=== PATIENT | male | born 1975 | race Caucasian/White ===

== ENCOUNTER 2016-08-09 20:44 | Emergency (ER) | payer BC ==
[~2016-08-09] VITALS: Ht 185.4 cm; Wt 133.1 kg
[~2016-08-09 20:44] MED LIST: OXYC1TAB3 PO; POTA10CA28 PO
[2016-08-09 20:47] VITALS: Ht 185.4 cm; Wt 133.1 kg
[2016-08-09 21:07] VITALS: O2SAT 96
[2016-08-09 21:19] LABS: HEMATOCRIT 40.8 % (42-52); MEAN CELL VOLUME 90.1 fL (80-100); MEAN CORPUSCULAR HEMOGLOBIN 30.2 pg (25-34); MEAN CORPUSCULAR HGB CONC 33.6 g/dl (32-36); MEAN PLATELET VOLUME 9.6 fL (7.4-10.4); PLATELET COUNT 221 K/uL (130-400); RED BLOOD COUNT 4.53 M/uL (4.7-6.1)
[2016-08-09 21:25] LABS: PROTHROMBIN TIME (PATIENT) 10.4 SECONDS (9.0-12.0)
[2016-08-09 21:33] LABS: ALB/GLOB RATIO 0.9 (0.9-2); ALKALINE PHOSPHATASE 84 U/L (45-117); ALT/SGPT 50 U/L (12-78); AST/SGOT 23 U/L (15-37); BLOOD UREA NITROGEN 11 mg/dl (7-18); CALCIUM 8.9 mg/dl (8.5-10.1); CARBON DIOXIDE 27 mmol/L (21-32); CHLORIDE 104 mmol/L (98-107); GLUCOSE 181 mg/dl (70-99); POTASSIUM 3.9 mmol/L (3.5-5.1); SODIUM 141 mmol/L (136-145)
--- NOTE | 2016-08-09 21:36 | DIAGNOSTIC IMAGING REPORT ---
CHEST ONE VIEW PORTABLE CLINICAL HISTORY: Chest pain. Dyspnea. COMPARISON STUDY: Chest radiograph and chest CT December 26, 2014. FINDINGS: This exam is compromised by suboptimal penetration related to body habitus and portable technique. Lung volumes are diminished. This is unchanged. No pneumothorax or pleural effusion is present. Mild to moderate cardiomegaly is noted. There is pulmonary vascular congestion with possible mild pulmonary edema. There is no consolidation to suggest pneumonia. IMPRESSION: 1. Diminished lung volumes. 2. Pulmonary vascular congestion with possible mild pulmonary edema. 3. Suspected cardiomegaly. Electronically signed by: Ranjit Wyman M.D. 08/09/2016 9:34 PM Dictated Date/Time: 08/09/2016 9:32 PM
[2016-08-09] MEDS ORDERED: KETOROLAC TROMETHAMINE 30 MG/ML VIAL IV STA (21:44)
[2016-08-09] MEDS ORDERED: TRAMADOL HCL 50 MG TAB PO STA (21:44)
[2016-08-09] MEDS ORDERED: ACETAMINOPHEN 500 MG TAB PO STA (21:44)
--- NOTE | 2016-08-09 21:44 | EMERGENCY ROOM VISIT NOTE ---
History Report prepared by Cora: Rosa Mclaughlin Under the Supervision of: Dr. Renny Ortiz M.D. First contact with patient: 21:36 Chief Complaint: CHEST PAIN Stated Complaint: CHEST PAIN, TROUBLE BREATHING,BLEEDING OUT LEFT EA Nursing Triage Summary: Triage Notes: Patient reports chest pain, difficulty breathing, and blood coming out of left ear. Patient reports symptoms began this morning. Denies cardiac history. History of Present Illness The patient is a 41 year old male who presents to the Emergency Room with complaints of constant chest pain beginning at 9am this morning. The patient states that the chest pain is causing him to have difficulty breathing. He also notes that this afternoon his ear began to bleed. The patient also notes the tips of his fingers are numb. Patient has history of PE and is not currently on blood thinners. Source of History: patient Onset: 9am this morning Position: chest Timing: constant Modifying Factors (Worsening): breathing Associated Symptoms: + numbness Note: The patient's ear was bleeding this morning. He is not on blood thinners. Review of Systems See HPI for pertinent positives & negatives. A total of 10 systems reviewed and were otherwise negative. Past Medical & Surgical Medical Problems: (1) Abdominal pain (2) ACS (acute coronary syndrome) (3) Asthma, Unspecified, W (Acute) Exacerbation (4) Asthmatic bronchitis (5) Atypical chest pain (6) Back pain (7) Blast injury of hand (8) Chest pain (9) Chest pain (10) Chest pain (11) Chest pain (12) Concussion (13) Contusion of multiple sites (14) Contusion of right shoulder (15) Costochondritis (16) Depression (17) Diabetes (18) Dizziness (19) Dyspnea (20) Gout Nos (21) Headache (22) Headache (23) HTN (hypertension) (24) Hx of pulmonary embolus (25) Hypoglycemia (26) Leukocytosis (27) Morbid Obesity (28) Nausea (29) Nephrolithiasis (30) Phlebitis (31) Pneumonia (32) Poorly controlled diabetes mellitus (33) Renal colic on left side (34) Right shoulder pain (35) Subtherapeutic anticoagulation (36) Suicidal ideation (37) Syncope (38) Weakness Surgical Problems: (1) Appendectomy (2) Tonsillectomy Family History Asthma Cancer Diabetes mellitus Heart disease Hypertension Kidney disease Kidney stones Lung disease Social History Smoking Status: Never Smoker Alcohol Use: occasionally Drug Use: none Marital Status: Housing Status: lives with family Occupation Status: employed Current/Historical Medications Scheduled Metformin Hcl (Glucophage), 1,000 MG PO BID Potassium Chloride (Micro-K Ext Rel), 10 MEQ PO QPM Sertraline HCl (Sertraline HCl), 200 MG PO QPM Scheduled PRN Indomethacin (Indocin), 50 MG PO TID PRN for Pain Allergies Coded Allergies: No Known Allergies (Unverified , 10/29/15) Physical Exam Vital Signs Date Time Temp Pulse Resp B/P Pulse Ox O2 Delivery O2 Flow Rate FiO2 08/10/16 00:00 36.4 66 20 138/77 95 08/09/16 23:58 66 20 138/77 95 Room Air 08/09/16 23:04 58 20 95 08/09/16 22:59 77 22 138/77 94 08/09/16 22:54 57 21 94 08/09/16 22:49 74 13 94 08/09/16 22:44 73 13 95 08/09/16 22:39 64 16 96 08/09/16 22:34 63 23 96 08/09/16 22:29 62 17 132/73 95 08/09/16 22:24 62 21 95 08/09/16 21:54 73 17 94 08/09/16 21:49 71 19 95 08/09/16 21:44 73 18 94 08/09/16 21:39 70 17 94 08/09/16 21:34 69 20 95 08/09/16 21:29 76 15 135/79 93 08/09/16 21:24 79 21 94 08/09/16 21:19 77 19 93 08/09/16 21:14 85 13 97 08/09/16 21:09 79 18 95 08/09/16 21:07 36.4 65 21 144/73 96 Room Air 08/09/16 21:07 96 Room Air 08/09/16 21:04 79 19 96 08/09/16 21:02 96 Room Air 08/09/16 20:59 67 08/09/16 20:59 65 21 96 08/09/16 20:58 144/73 08/09/16 20:56 139/79 08/09/16 20:47 36.4 78 16 179/86 96 Room Air Physical Exam CONSTITUTIONAL: Mild painful distress. HEENT: No icterus, moist mucous membranes NECK: No meningismus, trachea is midline. CARDIOVASCULAR: Regular rate, normal perfusion RESPIRATORY: Unlabored breathing. Clear to auscultation. GASTROINTESTINAL: Non-tender GENITOURINARY: No flank tenderness MUSCULOSKELETAL: Full range of motion NEUROLOGIC: No acute gross focal deficits. PSYCHIATRIC: Normal affect SKIN: Normal for ethnicity. Medical Decision & Procedures ER Provider Diagnostic Interpretation: X-ray results as stated below per my interpretation and radiologist interpretation. Other radiology results as stated below per my review and radiologist interpretation. CHEST ONE VIEW PORTABLE CLINICAL HISTORY: Chest pain. Dyspnea. COMPARISON STUDY: Chest radiograph and chest CT December 26, 2014. FINDINGS: This exam is compromised by suboptimal penetration related to body habitus and portable technique. Lung volumes are diminished. This is unchanged. No pneumothorax or pleural effusion is present. Mild to moderate cardiomegaly is noted. There is pulmonary vascular congestion with possible mild pulmonary edema. There is no consolidation to suggest pneumonia. IMPRESSION: 1. Diminished lung volumes. 2. Pulmonary vascular congestion with possible mild pulmonary edema. 3. Suspected cardiomegaly. Electronically signed by: Ranjit Wyman M.D. 08/09/2016 9:34 PM Dictated Date/Time: 08/09/2016 9:32 PM CHEST CTA for PULMONARY ARTERIES CT DOSE: 663.68 mGy.cm HISTORY: Difficulty breathing. Atypical chest pain. TECHNIQUE: Multiaxial CT images of the chest were performed following the intravenous administration of contrast to evaluate the pulmonary arteries. Maximal intensity projection images were also obtained. COMPARISON STUDY: Chest CTA 12/26/2014. FINDINGS: There is a normal caliber thoracic aorta with no evidence for dissection. Suboptimal evaluation of of the distal pulmonary arteries due to mild motion artifact and the patient's body habitus. However, there is no definite evidence for pulmonary embolus. No pleural effusions. No pneumothorax. The liver and spleen are unremarkable. No mediastinal or hilar lymphadenopathy. The central airways are patent. There is a 3 mm pulmonary nodule within the lingula on image 45. No focal lung consolidations to suggest pneumonia. IMPRESSION: Suboptimal evaluation of of the distal pulmonary arteries, however, there is no definite evidence for pulmonary embolus. A 3 mm indeterminate pulmonary nodule within the lingula. Please refer to the chart below for recommended follow-up. Electronically signed by: You Stephen M.D. 08/09/2016 10:36 PM Dictated Date/Time: 08/09/2016 10:21 PM Laboratory Results 08/09/16 21:00 08/09/16 21:00 Test 08/09/16 21:00 08/09/16 21:05 Red Blood Count 4.53 M/uL (4.7-6.1) Mean Corpuscular Volume 90.1 fL (80-100) Mean Corpuscular Hemoglobin 30.2 pg (25-34) Mean Corpuscular Hemoglobin Concent 33.6 g/dl (32-36) RDW Standard Deviation 45.3 fL (36.4-46.3) RDW Coefficient of Variation 13.8 % (11.5-14.5) Mean Platelet Volume 9.6 fL (7.4-10.4) Prothrombin Time 10.4 SECONDS (9.0-12.0) Prothromb Time International Ratio 1.0 (0.9-1.1) Activated Partial Thromboplast Time 26.6 SECONDS (21.0-31.0) Partial Thromboplastin Ratio 1.0 Anion Gap 10.0 mmol/L (3-11) Est Creatinine Clear Calc Drug Dose 126.5 ml/min Estimated GFR () 96.1 Estimated GFR (Non- 82.9 BUN/Creatinine Ratio 10.0 (10-20) Calcium Level 8.9 mg/dl (8.5-10.1) Total Bilirubin 0.2 mg/dl (0.2-1) Aspartate Amino Transf (AST/SGOT) 23 U/L (15-37) Alanine Aminotransferase (ALT/SGPT) 50 U/L (12-78) Alkaline Phosphatase 84 U/L (45-117) Total Creatine Kinase 107 U/L (39-308) Creatine Kinase MB < 0.5 ng/ml (0.5-3.6) Creatine Kinase MB Ratio (0-3.0) Total Protein 7.6 gm/dl (6.4-8.2) Albumin 3.6 gm/dl (3.4-5.0) Globulin 4.0 gm/dl (2.5-4.0) Albumin/Globulin Ratio 0.9 (0.9-2) Chemistry Specimen Hemolysis Bedside Troponin I 0.000 ng/ml (0-0.045) Labs reviewed by ED physician. Medications Administered Medications (Trade) Dose Ordered Sig/Crystal Route Start Time Stop Time Status Last Admin Dose Admin Acetaminophen (Tylenol Tab) 1,000 mg NOW STAT PO 08/09/16 21:44 08/09/16 21:46 DC 08/09/16 21:55 1,000 MG Ketorolac Tromethamine (Toradol Inj) 30 mg NOW STAT IV 08/09/16 21:44 08/09/16 21:46 DC 08/09/16 21:55 30 MG Tramadol HCl (Ultram Tab) 100 mg NOW STAT PO 08/09/16 21:44 08/09/16 21:46 DC 08/09/16 21:54 100 MG ECG Indication: chest pain Rate (beats per minute): 70 Rhythm: normal sinus Findings: no ectopy, other (normal axis, nonspecific ST findings) ED Course 2139: Past medical records reviewed. The patient was evaluated in room A2. A complete history and physical examination was performed. 2143: Ulram Tab 100 mg PO, Toradol Inj 30 mg IV, Tylenol Tab 1,000 mg PO. 2310: Upon reexamination the patient is hemodynamically stable. I discussed results and treatment plan with the patient. He verbalizes agreement and understanding. The patient is ready for discharge. Medical Decision Differential diagnoses include but are not limited to; musculoskeletal pain, PE , acute coronary syndrome. 41-year-old presented to the emergency department for moderate to severe pleuritic chest pain essentially had a negative CTA chest, EKG and troponin. He requested stronger analgesics and I advised him to take Tylenol and Motrin every 6 hours as needed for pain. He understands to follow-up with her doctor return emergency room for any worsening worrisome symptoms Impression Primary Impression: Precordial chest pain Scribe Attestation The scribe's documentation has been prepared under my direction and personally reviewed by me in its entirety. I confirm that the note above accurately reflects all work, treatment, procedures, and medical decision making performed by me. Departure Information Dispostion Home / Self-Care Referrals Yin Magallon C.R.N.P (PCP) Forms HOME CARE DOCUMENTATION FORM, IMPORTANT VISIT INFORMATION Patient Instructions Chest Pain - [facility], My [facility]
[2016-08-09] MEDS ORDERED: OPTIRAY 320 IV PRN (22:00)
--- NOTE | 2016-08-09 22:37 | DIAGNOSTIC IMAGING REPORT ---
CHEST CTA for PULMONARY ARTERIES CT DOSE: 663.68 mGy.cm HISTORY: Difficulty breathing. Atypical chest pain. TECHNIQUE: Multiaxial CT images of the chest were performed following the intravenous administration of contrast to evaluate the pulmonary arteries. Maximal intensity projection images were also obtained. COMPARISON STUDY: Chest CTA 12/26/2014. FINDINGS: There is a normal caliber thoracic aorta with no evidence for dissection. Suboptimal evaluation of of the distal pulmonary arteries due to mild motion artifact and the patient's body habitus. However, there is no definite evidence for pulmonary embolus. No pleural effusions. No pneumothorax. The liver and spleen are unremarkable. No mediastinal or hilar lymphadenopathy. The central airways are patent. There is a 3 mm pulmonary nodule within the lingula on image 45. No focal lung consolidations to suggest pneumonia. IMPRESSION: Suboptimal evaluation of of the distal pulmonary arteries, however, there is no definite evidence for pulmonary embolus. A 3 mm indeterminate pulmonary nodule within the lingula. Please refer to the chart below for recommended follow-up. Electronically signed by: You Stephen M.D. 08/09/2016 10:36 PM Dictated Date/Time: 08/09/2016 10:21 PM
[2016-08-09] MEDS ORDERED: ZLF/100 PO (23:26)
[2016-08-10] VITALS: BP 138/77; PULSE 66; TEMP 36.4; O2SAT 95
[2016-11-28] MEDS ORDERED: MULT-1027 PO (09:52)
[2016-11-28] MEDS ORDERED: ATRINS NEB (09:52)
[2016-12-19] MEDS ORDERED: HYDR-5688 PO (08:41)
[2016-12-19] MEDS ORDERED: TRAM-10 PO (10:13)
[2017-01-10] MEDS ORDERED: SERT-234 PO (09:52)
[2017-01-10] MEDS ORDERED: ERGO500037 PO (09:52)
[2017-01-10] MEDS ORDERED: NAPR1TAB9 PO (09:53)
[2017-01-10] MEDS ORDERED: METF1000 PO (15:10)
[2017-01-10] MEDS ORDERED: INDO50CA97 PO (17:22)
== END 2016-08-10 00:01 | disposition home or self-care (01) ==
LOC: C.EDB 20:45 → C.EDA 08-10 00:01
DX: R07.2 Precordial pain (principal); Z86.711 Personal history of pulmonary embolism; J45.909 Unspecified asthma, uncomplicated; E11.9 Type 2 diabetes mellitus without complications; I10 Essential (primary) hypertension; E66.01 Morbid (severe) obesity due to excess calories; Z87.01 Personal history of pneumonia (recurrent); Z82.5 Family history of asthma and other chronic lower respiratory diseases; Z80.9 Family history of malignant neoplasm, unspecified; Z83.3 Family history of diabetes mellitus; Z82.49 Family history of ischemic heart disease and other diseases of the circulatory system; Z84.1 Family history of disorders of kidney and ureter

== ENCOUNTER → 2016-09-30 | Outpatient (CLI) | payer BC ==
[~2016-09-30] MED LIST changes: +ATRINS NEB; +CIPR-255 PO; +ERGO500037 PO; +HYDR-5688 PO; +INDO50CA97 PO; +METF1000 PO; +MULT-1027 PO; +NAPR1TAB9 PO; -OXYC1TAB3 PO; +SERT-234 PO; +TRAM-10 PO; +ZLF/100 PO
--- NOTE | 2016-09-30 10:34 | DIAGNOSTIC IMAGING REPORT ---
LEFT FOOT 3 VIEWS CLINICAL HISTORY: Left foot pain. FINDINGS: 3 views of the left foot are compared to study dated 04/03/2016. The skeletal structures are well mineralized. No fracture is seen. Arthritic changes present the first metatarsophalangeal joint there is mild overlying soft tissue edema. No bony erosion is seen. There are dorsal and plantar calcaneal enthesophytes. A coarse calcification is again noted anterior to the ankle joint. An os naviculari is incidentally noted. IMPRESSION: 1. No acute bony abnormality is identified. 2. Degenerative change is present at the first metatarsophalangeal joint with overlying soft tissue edema. No definite erosion is seen. This could represent gouty arthropathy as clinically suspected. Electronically signed by: Olaf Rooney M.D. 09/30/2016 10:33 AM Dictated Date/Time: 09/30/2016 10:31 AM
== END | disposition home or self-care (01) ==
LOC: C.RADPV 10:08
PROVIDERS: ATTEND Nurse Practitioner
DX: M79.672 Pain in left foot (principal)

== ENCOUNTER → 2016-10-10 | Outpatient (CLI) | payer BC ==
[2016-10-10 11:57] LABS: BASO % 0.5 %; BASO ABS # 0.05 K/uL (0-0.2); COMPLETE YES; EOS % 1.4 %; HEMATOCRIT 42.3 % (42-52); LYMPH % 22.2 %; MEAN CELL VOLUME 89.4 fL (80-100); MEAN CORPUSCULAR HEMOGLOBIN 29.2 pg (25-34); MEAN CORPUSCULAR HGB CONC 32.6 g/dl (32-36); MEAN PLATELET VOLUME 9.8 fL (7.4-10.4); MONO % 5.2 %; NEUT % 69.7 %; PLATELET COUNT 276 K/uL (130-400); RED BLOOD COUNT 4.73 M/uL (4.7-6.1)
[2016-10-10 12:20] LABS: ESTIMATED AVERAGE GLUCOSE 160 mg/dl; HA1C FLAG Normal (Normal)
[2016-10-10 12:24] LABS: ALT/SGPT 42 U/L (12-78); BLOOD UREA NITROGEN 14 mg/dl (7-18); BUN/CREATININE RATIO 13.9 (10-20); CALCIUM 9.6 mg/dl (8.5-10.1); CARBON DIOXIDE 26 mmol/L (21-32); CHLORIDE 103 mmol/L (98-107); CREATININE 0.97 mg/dl (0.60-1.40); GLUCOSE 185 mg/dl (70-99); POTASSIUM 3.9 mmol/L (3.5-5.1); SODIUM 138 mmol/L (136-145)
[2016-10-10 12:27] LABS: ALKALINE PHOSPHATASE 80 U/L (45-117); AST/SGOT 20 U/L (15-37)
== END | disposition home or self-care (01) ==
LOC: C.LABPVFM 09:30
PROVIDERS: ATTEND Nurse Practitioner Family
DX: R10.32 Left lower quadrant pain (principal); E11.9 Type 2 diabetes mellitus without complications; E55.9 Vitamin D deficiency, unspecified

== ENCOUNTER → 2016-10-18 | Outpatient (CLI) | payer BC ==
[2016-10-18 13:33] LABS: CHOLESTEROL/HDL RATIO 5.5
== END | disposition home or self-care (01) ==
LOC: C.LABPVFM 08:53
PROVIDERS: ATTEND Nurse Practitioner Family
DX: E11.9 Type 2 diabetes mellitus without complications (principal); E78.1 Pure hyperglyceridemia; E55.9 Vitamin D deficiency, unspecified

== ENCOUNTER → 2016-10-25 | Outpatient (CLI) | payer BC ==
[~2016-10-25] MED LIST changes: +OPTIRAY 320 IV PRN
--- NOTE | 2016-10-25 16:17 | DIAGNOSTIC IMAGING REPORT ---
CT SCAN OF THE ABDOMEN AND PELVIS WITH IV CONTRAST CLINICAL HISTORY: Left lower quadrant abdominal pain. Constipation and diarrhea. COMPARISON STUDY: Abdominal CT dated 01/03/2014. TECHNIQUE: Following the IV administration of 115 cc of Optiray 320, CT scan of the abdomen and pelvis is performed from the lung bases to the proximal femora. Images are reviewed in the axial, sagittal, and coronal planes. IV contrast was administered without complication. Automated dose control exposure was utilized. The examination is significantly degraded by large body habitus, and by streak artifact from the body wall abutting the CT gantry. CT DOSE: 2358.01 mGy.cm FINDINGS: Lung bases: The heart is normal in size and without pericardial effusion. The lung bases are clear. There is a tiny hiatal hernia. Liver: Evaluation of the liver is degraded by streak artifact. The contrast-enhanced liver is enlarged, measuring 23.2 cm in length. The liver demonstrates diffusely diminished attenuation consistent with severe hepatic steatosis. Fatty sparing is noted adjacent to the gallbladder fossa. There is no intrahepatic biliary ductal dilatation. The hepatic veins and portal veins are patent. Gallbladder: Unremarkable. Spleen: The spleen is enlarged, measuring 15.2 cm in length. Pancreas: Unremarkable. Adrenal glands: Unremarkable. Kidneys: The contrast enhanced kidneys are normal in size and without hydronephrosis. The kidneys enhance symmetrically. There is a 4 mm nonobstructing calculus in the lower pole of the left kidney. Abdominal vasculature: The abdominal aorta is normal in course and caliber. Bowel: The small bowel and colon are normal in course and caliber. There is mild colonic diverticulosis without CT evidence of acute diverticulitis. The appendix is not identified and reported surgically absent. Peritoneum: There is no intraperitoneal free air or abdominal ascites. There is a small fat-containing umbilical hernia. Lymphadenopathy: None. Pelvic viscera: The bladder, prostate, and seminal vesicles are normal as visualized. Skeletal structures: No lytic or blastic lesions are seen. IMPRESSION: 1. There are no acute infectious or inflammatory findings in the abdomen or pelvis. 2. Hepatomegaly and severe hepatic steatosis. 3. Mild colonic diverticulosis without CT evidence of acute diverticulitis. 4. Splenomegaly. 5. Nonobstructing left renal calculus. Electronically signed by: Olaf Rooney M.D. 10/25/2016 4:15 PM Dictated Date/Time: 10/25/2016 4:08 PM
== END | disposition home or self-care (01) ==
LOC: C.CTS 13:31
PROVIDERS: ATTEND Nurse Practitioner Family
DX: K57.30 Diverticulosis of large intestine without perforation or abscess without bleeding (principal); R10.32 Left lower quadrant pain; K76.0 Fatty (change of) liver, not elsewhere classified; R16.2 Hepatomegaly with splenomegaly, not elsewhere classified; N20.0 Calculus of kidney

== ENCOUNTER → 2016-12-19 | Day surgery (SDC) | payer BC ==
[2016-11-28 09:53] VITALS: BMI 55.0; BMI 56.0
--- NOTE | 2016-11-28 10:24 | PAT Medication Instructions ---
Service Date November 28, 2016. Current Home Medication List Ergocalciferol (Vitamin D 41063 Unit), 50,000 UNIT PO WK Indomethacin (Indocin), 50 MG PO TID PRN for Pain Ipratropium Tieton (Ipratropium Tieton), 1 VIAL NEB QID PRN for PRN Metformin Hcl (Glucophage), 1,000 MG PO BID Multiple Vitamin (Multi Vitamin), 1 TAB PO QPM Naproxen (Aleve), 660 MG PO PRN Sertraline (Zoloft), 150 MG PO HS Medication Instructions For Your Scheduled Surgery - Check with surgeon for instructions: Indomethacin (Indocin), 50 MG PO TID PRN for Pain Naproxen (Aleve), 660 MG PO PRN - Hold the following medications 48 hours prior to surgery: Metformin Hcl (Glucophage), 1,000 MG PO BID - Hold the following medications the morning of surgery: Multiple Vitamin (Multi Vitamin), 1 TAB PO QPM Ergocalciferol (Vitamin D 98061 Unit), 50,000 UNIT PO WK - Take the following medications the morning of surgery with a sip of water: Ipratropium Tieton (Ipratropium Tieton), 1 VIAL NEB QID PRN for PRN - Take the following medications as scheduled the night before surgery: Sertraline (Zoloft), 150 MG PO HS Ipratropium Tieton (Ipratropium Tieton), 1 VIAL NEB QID PRN for PRN If you have any questions please call us at [phone] (Halie Fragoso PA-C) or [phone] or [phone]
[2016-11-28 10:49] LABS: BASO % 0.3 %; BASO ABS # 0.03 K/uL (0-0.2); COMPLETE YES; EOS % 1.8 %; HEMATOCRIT 41.7 % (42-52); IG% 1.9 %; LYMPH % 21.1 %; LYMPH ABS # 2.15 K/uL (1.2-3.4); MEAN CELL VOLUME 91.2 fL (80-100); MEAN CORPUSCULAR HEMOGLOBIN 29.1 pg (25-34); MEAN CORPUSCULAR HGB CONC 31.9 g/dl (32-36); MEAN PLATELET VOLUME 9.5 fL (7.4-10.4); MONO % 5.3 %; NEUT % 69.6 %; PLATELET COUNT 231 K/uL (130-400); RED BLOOD COUNT 4.57 M/uL (4.7-6.1); WHITE BLOOD COUNT 10.21 K/uL (4.8-10.8)
[2016-11-28 11:14] LABS: BUN/CREATININE RATIO 10.5 (10-20); CALCIUM 8.9 mg/dl (8.5-10.1); POTASSIUM 4.1 mmol/L (3.5-5.1)
--- NOTE | 2016-11-28 11:47 | DIAGNOSTIC IMAGING REPORT ---
CHEST PREADMISSION(PA/LAT) CLINICAL HISTORY: Preoperative chest COMPARISON STUDY: 08/09/2016 FINDINGS: The cardiac and mediastinal contours are normal. There is no evidence of focal pulmonary consolidation. There is no evidence of failure. No pleural effusions are visualized.[ IMPRESSION: No active disease in the chest. Electronically signed by: Gian Johnson M.D. 11/28/2016 11:46 AM Dictated Date/Time: 11/28/2016 11:45 AM
[~2016-12-19] VITALS: Ht 185.4 cm; Wt 190.1 kg
[~2016-12-19] MED LIST changes: +ATROPINE SULFATE 0.1 MG/ML 5ML SYR IV PRN; +BUPIVACAINE/EPINEPHRINE 0.5% MPF 1:200,000 30 ML VIAL ONE; +CEFAZOLIN 3000 MG/65 ML D5W IV SCH; +DEXAMETHASONE SOD INJ 4 MG/ML VIAL ONE; +EpHEDrine SULFATE INJ 50 MG/ML AMP IV PRN; +FENTANYL CITRATE INJ 50 MCG/1 ML 2 ML VIAL ONE; +GLYCOPYRROLATE INJ 0.2 MG/ML VIAL ONE; +HYDROCODONE/ACETAMOPHEN 5/325MG TAB PO PRN; +LABETALOL HCL IV 5 MG/ML 20ML IV PRN; +LACTATED RINGER'S 1000ML 1,000 ML IV SCH; +LIDOCAINE HCL 2% 2 ML VIAL (20MG/ML) ONE; +MEPERIDINE HCL 25 MG/ML CARP IV PRN; +MIDAZOLAM HCL 1 MG/ML 2ML VIAL ONE; +NEOSTIGMINE METHYLSULFATE 5 MG/5 ML SYR ONE; +ONDANSETRON INJ 2 MG/ML 2 ML VIAL IV PRN; +ONDANSETRON INJ 2 MG/ML 2 ML VIAL ONE; -OPTIRAY 320 IV PRN; -POTA10CA28 PO; +PROPOFOL IV EMULSION 10 MG/ML 20 ML VIAL IV ONE; +ROCURONIUM BROMIDE 10 MG/ML 5 ML VIAL ONE; +SODIUM CHLORIDE 0.9% 1000ML 1,000 ML IV SCH; -ZLF/100 PO
[2016-12-19 05:35] VITALS: BP 144/78; PULSE 96; TEMP 37; O2SAT 98; Ht 185.4 cm; Wt 190.1 kg
--- NOTE | 2016-12-19 06:55 | History & Physical Bridge Note ---
H&P Re-Evaluation Bridge Note: I have examined the patient, reviewed the History & Physical and in the interval since the performance of the History & Physical I have noted the following changes of clinical significance: No changes noted
--- NOTE | 2016-12-19 08:37 | [facility] Operative Report ---
Operative Report Operative Date Dec 19, 2016. Pre-Operative Diagnosis Gallbladder Sulge Post-Operative Diagnosis same Procedure(s) Performed lap daniel Surgeon Acid Polymerization Operator Surgeon(s) Alecia Reis PA-C Estimated Blood Loss 10ML Findings normal anatomy other than enlarged liver. Specimens A. Gallbladder Anesthesia GET Complication(s) None Disposition Recovery Room / PACU I attest to the content of the Intraoperative Record and any orders documented therein. Any exceptions are noted below.
--- NOTE | 2016-12-19 08:43 | Discharge Instructions ---
Discharge Instructions Date of Service Dec 19, 2016. Admission Reason for Admission: Gallbladder Sludge, Diabetes Discharge Discharge Diagnosis / Problem: Gallbladder Sludge, Diabetes Discharge Goals Goal(s): Decrease discomfort, Improve function Activity Recommendations Activity Limitations: as noted below Lifting Limitations: no more than 10 pounds Exercise/Sports Limitations: until after follow-up appointment May Resume Sexual Activity: after follow-up appointment Shower/Bathe: tomorrow . Instructions / Follow-Up Instructions / Follow-Up Please follow-up with Dr. Burgess in the office in 1-2 weeks. Please call the office at [phone] to make an appointment if you do not have one already. Current Hospital Diet Patient's current hospital diet: Discharge Diet Recommended Diet: Regular Diet Procedures Procedures Performed: Laparoscopic Cholecystectomy Pending Studies Studies pending at discharge: no Laboratory Results Hemoglobin A1c Test 10/10/16 09:35 Range/Units Estimated Average Glucose 160 mg/dl Hemoglobin A1c 7.2 H 4.5-5.6 % Lipid Panel Test 10/18/16 09:05 Range/Units Triglycerides Level 396 H 0-150 mg/dl Cholesterol Level 252 H 0-200 mg/dl HDL Cholesterol 46 mg/dl Cholesterol/HDL Ratio 5.5 LDL Cholesterol, Calculated 127 mg/dl Medical Emergencies . Who to Call and When: Medical Emergencies: If at any time you feel your situation is an emergency, please call 911 immediately. . Non-Emergent Contact Non-Emergency issues call your: Surgeon Call Non-Emergent contact if: temperature is above 101.5, your pain is not controlled, wound has increased drainage, wound has increased redness . "Provider Documentation" section prepared by Alecia Reis. . VTE Core Measure Inpt VTE Proph given/why not?: SCD's [place] Drug Monitoring Program Search Results: patient reviewed within database, no issues identified
[2016-12-19] MEDS: FENTANYL CITRATE INJ 50 MCG/1 ML 2 ML VIAL IV PRN ×6 (08:55→09:27)
--- NOTE | 2016-12-19 08:58 | Medical Student: [facility] ---
Operative Report Operative Date Dec 19, 2016. Pre-Operative Diagnosis Gallbladder Sludge Post-Operative Diagnosis Same Procedure(s) Performed Laparoscopic cholecystectomy Surgeon Dr. Burgess Job Honer Surgeon(s) Alecia Reis Estimated Blood Loss 10cc Findings Enlarged liver. Non-inflamed, pearly gallbladder. Specimens Gallbladder Drains None Anesthesia General Complication(s) None Disposition Recovery Room / PACU Description of Procedure Bandar Kaur was brought into the operating room and was placed in the reverse Trendelenburg position and rotated to his left. The abdomen was draped and prepared in normal sterile fashion. A paraumbilical incision was made using an 11 blade, and the incision was advanced posteriorly through the fascia with electrocautery and blunt dissection until the greater sac was reached. A 12mm port was placed, and the camera was introduced into the abdomen. The viscera was inspected and was grossly normal except for an enlarged liver. Three additional ports were placed, two in the right upper quadrant (3mm) and one beneath the xyphoid process (5mm). The abdomen was inflated. Using electrocautery, the gallbladder was dissected from the fascia adhering it to the liver. The cystic duct was dissected and visualized, and it was then clipped three times, twice proximally and once distally. This process was repeated for the cystic artery. Both the cystic duct and the cystic artery were transected, and the gallbladder specimen was removed from the abdomen in an EndoCatch bag to be sent to pathology for further inspection. The greater sac was irrigated and suctioned, and no further bleeding was observed. The ports were removed from the abdominal wall, and the abdomen was deflated. The abdominal wall fascia was closed in a figure-of-8 stitch using 0-Vicryl. After irrigating each wound, the skin was closed using 4-0 Monocryl. Marcaine was injected around each wound for analgesia, and Dermabond was used to finally close. The abdomen was washed, and the patient was transferred to the PACU in stable condition for recovery.
--- NOTE | 2016-12-19 09:02 | OPERATIVE REPORT ---
DATE OF OPERATION: 12/19/2016 PREOPERATIVE DIAGNOSIS: Symptomatic biliary sludge. POSTOPERATIVE DIAGNOSIS: Same as well as an enlarged liver. PROCEDURE: Laparoscopic cholecystectomy. SURGEON: Dr. Burgess. ORACLE PROGRAMMER: Alecia Reis PA-C. ESTIMATED BLOOD LOSS: Approximately 10 mL COMPLICATIONS: No immediate. ANESTHESIA: General endotracheal. The patient tolerated the procedure well. OPERATIVE NOTE: After informed consent was obtained, the patient taken to the operating suite and placed in supine position. After successful intubation, the abdomen was shaved and sterilely prepped and draped in usual fashion. A supraumbilical incision was made with an 11 blade scalpel and carried down through the soft tissue using electrocautery. Anterior rectus fascia was opened using electrocautery and two #0 Vicryl stay sutures were placed. Peritoneum was entered using blunt finger penetration and a finger sweep was performed. A 12 mm Esequiel trocar was placed and the abdomen was insufflated to 18 mmHg. Laparoscope was inserted in the abdomen and the abdomen examined 360 degrees. The liver was enlarged and somewhat fatty, although there was no evidence of cirrhosis. No other gross abnormalities were identified. A subxiphoid 5 mm port and two right upper quadrant 5 mm ports were placed under direct vision. The patient was placed in reverse Trendelenburg position and slightly airplaned to the left. The gallbladder was grasped and elevated superiorly and laterally. Some adhesions around the neck of the gallbladder were taken down using electrocautery and blunt dissection. We were then able to skeletonize the cystic duct. It was clipped twice proximally and once distally and transected using laparoscopic scissor. In similar fashion, the cystic artery was identified, skeletonized, clipped and divided. The gallbladder was then removed from the gallbladder fossa using electrocautery. It was removed intact. It was placed into an EndoCatch bag. Any small bleeding points in the gallbladder fossa were controlled using electrocautery. The right upper quadrant was thoroughly irrigated and suctioned out. At the end the procedure, there was adequate hemostasis and no evidence of a bile leak. A quick look around the abdomen showed no other abnormalities. The gallbladder was removed from the camera port site. All the trocars were removed and the abdomen was desufflated. The fascia of the camera port was closed using 0 Vicryl in [id number] fashion. All the wounds were irrigated and closed using 4-0 Monocryl. Marcaine was injected around them for postoperative analgesia and skin glue used as a dressing. The patient was awakened, extubated, and transferred to recovery in stable condition. I attest to the content of the Intraoperative Record and any orders documented therein. Any exception s are noted below.
--- NOTE | 2016-12-19 09:31 | Anesthesiology Progress Note ---
Anesthesia Post Op Note Date & Time Dec 19, 2016 at 09:31 Vital Signs Pain Intensity: 7.0 Vital Signs Past 12 Hours Date Time Temp Pulse Resp B/P (MAP) Pulse Ox O2 Delivery O2 Flow Rate FiO2 12/19/16 09:15 76 18 141/57 95 Nasal Cannula 2 12/19/16 09:05 78 18 131/67 100 Nasal Cannula 2 12/19/16 08:55 71 20 150/69 100 Mask 10 12/19/16 08:45 78 20 153/74 100 Mask 10 12/19/16 08:36 36.2 99 20 160/94 100 Mask 10 12/19/16 05:35 37 96 18 144/78 (100) 98 Room Air Notes Mental Status: alert / awake / arousable, participated in evaluation Pt Amnestic to Procedure: Yes Nausea / Vomiting: adequately controlled Pain: adequately controlled Airway Patency, RR, SpO2: stable & adequate BP & HR: stable & adequate Hydration State: stable & adequate Anesthetic Complications: no major complications apparent
[2016-12-19] MEDS: HYDROmorphone INJ 1 MG/ML SYR IV PRN ×2 (09:57→10:02)
[2016-12-19 10:30] VITALS: BP 145/73; PULSE 77; TEMP 36.8; O2SAT 91
[2016-12-19 11:00] VITALS: BP_SYST 145; BP_SYST 146; BP_DIAS 63; BP_DIAS 73; PULSE 86; O2SAT 92
[2016-12-19 11:30] VITALS: BP 167/77; PULSE 81; O2SAT 94
[2016-12-19 12:00] VITALS: BP 134/60; PULSE 81; TEMP 36.8; O2SAT 96
== END | disposition home or self-care (01) ==
LOC: C.ACU 05:07
PROVIDERS: ATTEND Surgery
DX: K82.8 Other specified diseases of gallbladder (principal); K76.0 Fatty (change of) liver, not elsewhere classified; E66.9 Obesity, unspecified; E11.42 Type 2 diabetes mellitus with diabetic polyneuropathy; I10 Essential (primary) hypertension; E78.1 Pure hyperglyceridemia; J45.909 Unspecified asthma, uncomplicated; F41.9 Anxiety disorder, unspecified; F32.9 Major depressive disorder, single episode, unspecified; E55.9 Vitamin D deficiency, unspecified; G47.30 Sleep apnea, unspecified; Z86.711 Personal history of pulmonary embolism; Z72.0 Tobacco use; Z79.84 Long term (current) use of oral hypoglycemic drugs; Z79.899 Other long term (current) drug therapy

== ENCOUNTER → 2016-12-23 | Outpatient (CLI) | payer BC ==
[~2016-12-23] MED LIST changes: -ATROPINE SULFATE 0.1 MG/ML 5ML SYR IV PRN; -BUPIVACAINE/EPINEPHRINE 0.5% MPF 1:200,000 30 ML VIAL ONE; -CEFAZOLIN 3000 MG/65 ML D5W IV SCH; -DEXAMETHASONE SOD INJ 4 MG/ML VIAL ONE; -EpHEDrine SULFATE INJ 50 MG/ML AMP IV PRN; -FENTANYL CITRATE INJ 50 MCG/1 ML 2 ML VIAL ONE; -GLYCOPYRROLATE INJ 0.2 MG/ML VIAL ONE; -HYDROCODONE/ACETAMOPHEN 5/325MG TAB PO PRN; -LABETALOL HCL IV 5 MG/ML 20ML IV PRN; -LACTATED RINGER'S 1000ML 1,000 ML IV SCH; -LIDOCAINE HCL 2% 2 ML VIAL (20MG/ML) ONE; -MEPERIDINE HCL 25 MG/ML CARP IV PRN; -MIDAZOLAM HCL 1 MG/ML 2ML VIAL ONE; -NEOSTIGMINE METHYLSULFATE 5 MG/5 ML SYR ONE; -ONDANSETRON INJ 2 MG/ML 2 ML VIAL IV PRN; -ONDANSETRON INJ 2 MG/ML 2 ML VIAL ONE; -PROPOFOL IV EMULSION 10 MG/ML 20 ML VIAL IV ONE; -ROCURONIUM BROMIDE 10 MG/ML 5 ML VIAL ONE; -SODIUM CHLORIDE 0.9% 1000ML 1,000 ML IV SCH
[2016-12-23 14:56] LABS: BASO % 0.3 %; BASO ABS # 0.04 K/uL (0-0.2); COMPLETE YES; EOS % 1.3 %; HEMATOCRIT 41.1 % (42-52); IG% 1.1 %; LYMPH ABS # 2.15 K/uL (1.2-3.4); MEAN CELL VOLUME 91.5 fL (80-100); MEAN CORPUSCULAR HEMOGLOBIN 28.7 pg (25-34); MEAN CORPUSCULAR HGB CONC 31.4 g/dl (32-36); MEAN PLATELET VOLUME 9.3 fL (7.4-10.4); MONO % 7.1 %; NEUT % 72.2 %; PLATELET COUNT 242 K/uL (130-400); RED BLOOD COUNT 4.49 M/uL (4.7-6.1); WHITE BLOOD COUNT 11.93 K/uL (4.8-10.8)
== END | disposition home or self-care (01) ==
LOC: C.LAB 14:07
PROVIDERS: ATTEND Surgery
DX: R10.13 Epigastric pain (principal)

== ENCOUNTER 2017-01-10 20:10 | Emergency (ER) | payer BC ==
[~2017-01-10] VITALS: Ht 185.4 cm; Wt 128.6 kg
[~2017-01-10 20:10] MED LIST changes: -CIPR-255 PO; -HYDR-5688 PO; -TRAM-10 PO
[2017-01-10 20:13] VITALS: TEMP 36.7; Ht 185.4 cm; Wt 128.6 kg
[2017-01-10] MEDS ORDERED: ONDANSETRON INJ 2 MG/ML 2 ML VIAL IV STA (20:29)
[2017-01-10] MEDS ORDERED: SODIUM CHLORIDE 0.9% 1000ML 1,000 ML IV STA (20:29)
[2017-01-10] MEDS ORDERED: MoRPHine SULFATE 10 MG/ML CARP/VIAL IV STA (20:29)
[2017-01-10 20:50] LABS: BASO % 0.3 %; BASO ABS # 0.03 K/uL (0-0.2); COMPLETE YES; EOS % 1.5 %; HEMATOCRIT 43.7 % (42-52); MEAN CELL VOLUME 90.7 fL (80-100); MEAN CORPUSCULAR HEMOGLOBIN 29.3 pg (25-34); MEAN CORPUSCULAR HGB CONC 32.3 g/dl (32-36); MEAN PLATELET VOLUME 9.3 fL (7.4-10.4); MONO % 4.3 %; NEUT % 66.9 %; PLATELET COUNT 285 K/uL (130-400); RED BLOOD COUNT 4.82 M/uL (4.7-6.1); WHITE BLOOD COUNT 11.54 K/uL (4.8-10.8)
--- NOTE | 2017-01-10 21:16 | DIAGNOSTIC IMAGING REPORT ---
CT SCAN OF THE ABDOMEN AND PELVIS WITHOUT IV CONTRAST CLINICAL HISTORY: Left flank pain. COMPARISON STUDY: Abdominal CT dated 10/25/2016. TECHNIQUE: CT scan of the abdomen and pelvis is performed from the lung bases to the proximal femora. Images are reviewed in the axial, sagittal, and coronal planes. IV contrast was not administered for this examination as per the referring clinician. The examination is also degraded by large body habitus, and by streak artifact from the body wall abutting the CT gantry. Automated dose control exposure was utilized. CT DOSE: 2420.58 mGy.cm FINDINGS: Lung bases: The heart is normal in size and without pericardial effusion. The lung bases are clear. Liver: The unenhanced liver is enlarged measuring in length. The liver demonstrates diffusely diminished attenuation consistent with severe hepatic steatosis. There is no intrahepatic biliary ductal dilatation. Gallbladder: Surgically absent noting clips in the gallbladder fossa. Spleen: The spleen is enlarged measuring 15.7 cm in flank. Pancreas: Mildly atrophic for age. Adrenal glands: Unremarkable. Kidneys: The unenhanced kidneys are normal in size and without hydronephrosis. There is a punctate nonobstructing calculus in the lower pole the left kidney no right renal calculi are identified. There is no evidence of contour deforming renal mass lesion. Abdominal vasculature: The abdominal aorta is normal in course and caliber. Bowel: The small bowel and colon are normal in course and caliber. The appendix is not identified and reported surgically absent. Peritoneum: There is no intraperitoneal free air or abdominal ascites. There is a fat-containing umbilical hernia. Lymphadenopathy: None. Pelvic viscera: The bladder, prostate, and seminal vesicles are normal as visualized. Skeletal structures: There is mild lumbosacral spondylosis. Mild sclerotic change is noted in the sacroiliac joints. No lytic or blastic lesions are seen. IMPRESSION: 1. There are no acute infectious or inflammatory findings in the abdomen or pelvis. 2. Hepatomegaly and severe hepatic steatosis. 3. Splenomegaly. 4. Mild colonic diverticulosis without CT evidence of acute diverticulitis. 5. Punctate nonobstructing left renal calculus. Electronically signed by: Olaf Rooney M.D. 01/10/2017 9:14 PM Dictated Date/Time: 01/10/2017 9:09 PM
[2017-01-10 21:39] LABS: ALKALINE PHOSPHATASE 97 U/L (45-117); ALT/SGPT 43 U/L (12-78); AST/SGOT 23 U/L (15-37); BLOOD UREA NITROGEN 14 mg/dl (7-18); BUN/CREATININE RATIO 12.9 (10-20); CARBON DIOXIDE 27 mmol/L (21-32); CHLORIDE 103 mmol/L (98-107); GLUCOSE 176 mg/dl (70-99); POTASSIUM 4.1 mmol/L (3.5-5.1); SODIUM 138 mmol/L (136-145)
[2017-01-10] MEDS ORDERED: KETOROLAC TROMETHAMINE 30 MG/ML VIAL IV STA (21:43)
[2017-01-10 21:51] LABS: URINE APPEARANCE CLOUDY (CLEAR); URINE BILIRUBIN NEG (NEG); URINE COLOR ORANGE; URINE EPITHELIAL CELL AUTO >30 /lpf (0-5); URINE NITRITE NEG (NEG); UROBILINOGEN NEG (NEG); ZZUR CULT IF INDIC CLEAN CATCH YES
[2017-01-10 21:52] LABS: MANUAL MICROSCOPIC REQUIRED? NO; REVIEW REQ? YES
[2017-01-10] MEDS ORDERED: FLUCONAZOLE 50 MG TAB PO STA (22:04)
[2017-01-10] MEDS ORDERED: CIPR-255 PO (22:07)
[2017-01-10] MEDS ORDERED: CIPROFLOXACIN 500 MG TAB PO STA (22:07)
[2017-01-10 22:10] VITALS: BP 135/92; PULSE 77; O2SAT 96
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
== END 2017-01-10 22:29 | disposition home or self-care (01) ==
LOC: C.EDB 20:11 → C.EDA 22:29
DX: R10.9 Unspecified abdominal pain (principal); I24.9 Acute ischemic heart disease, unspecified; J45.909 Unspecified asthma, uncomplicated; E11.9 Type 2 diabetes mellitus without complications; M10.9 Gout, unspecified; I10 Essential (primary) hypertension; E16.2 Hypoglycemia, unspecified; D72.829 Elevated white blood cell count, unspecified; E66.01 Morbid (severe) obesity due to excess calories; Z83.3 Family history of diabetes mellitus; Z82.49 Family history of ischemic heart disease and other diseases of the circulatory system; Z82.5 Family history of asthma and other chronic lower respiratory diseases

== ENCOUNTER 2017-04-04 10:30 | Emergency (ER) | payer BC ==
[~2017-04-04] VITALS: Ht 185.4 cm; Wt 112.2 kg
[~2017-04-04 10:30] MED LIST changes: -ATRINS NEB; +CIPR-255 PO; -MULT-1027 PO
[2017-04-04 10:33] VITALS: TEMP 36.7; O2SAT 97; Ht 185.4 cm; Wt 112.2 kg
[2017-04-04] MEDS ORDERED: METHYLPREDNISOLONE IV 80 MG in SYRINGE 0 ML IV STA (10:53)
[2017-04-04] MEDS ORDERED: DiphenhydrAMINE HCL 50 MG/ML VIAL IV STA (10:53)
[2017-04-04] MEDS ORDERED: RANITIDINE HCL 50 MG/100 ML D5W IV STA (10:53)
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
[2017-04-04] MEDS ORDERED: ONDANSETRON INJ 2 MG/ML 2 ML VIAL IV STA (11:20)
[2017-04-04 11:28] VITALS: O2SAT 96
--- NOTE | 2017-04-04 11:40 | DIAGNOSTIC IMAGING REPORT ---
SINGLE VIEW CHEST CLINICAL HISTORY: Atypical chest pain. FINDINGS: An AP, portable, upright chest radiograph is compared to study dated 11/28/2016 and correlated with chest CT dated 08/09/2016. The examination is degraded by portable technique, apical lordotic positioning, and large body habitus. The cardiomediastinal silhouette is normal for projection. The lungs and pleural spaces are clear. No pneumothorax is seen. The bony thorax is grossly intact. IMPRESSION: No active disease in the chest. Electronically signed by: Olaf Rooney M.D. 04/04/2017 11:39 AM Dictated Date/Time: 04/04/2017 11:37 AM
[2017-04-04 11:57] LABS: ALT/SGPT 39 U/L (12-78); BASO % 0.2 %; BASO ABS # 0.02 K/uL (0-0.2); BLOOD UREA NITROGEN 14 mg/dl (7-18); BUN/CREATININE RATIO 13.5 (10-20); CALCIUM 9.3 mg/dl (8.5-10.1); CARBON DIOXIDE 26 mmol/L (21-32); CHLORIDE 105 mmol/L (98-107); COMPLETE YES; EOS % 2.4 %; GLUCOSE 216 mg/dl (70-99); HEMATOCRIT 40.5 % (42-52); IG% 1.1 %; LYMPH % 23.5 %; LYMPH ABS # 1.98 K/uL (1.2-3.4); MEAN CELL VOLUME 90.2 fL (80-100); MEAN CORPUSCULAR HGB CONC 32.1 g/dl (32-36); MEAN PLATELET VOLUME 9.9 fL (7.4-10.4); MONO % 5.5 %; NEUT % 67.3 %; PLATELET COUNT 202 K/uL (130-400); POTASSIUM 4.1 mmol/L (3.5-5.1); RED BLOOD COUNT 4.49 M/uL (4.7-6.1); SODIUM 139 mmol/L (136-145); WHITE BLOOD COUNT 8.43 K/uL (4.8-10.8)
[2017-04-04 12:02] LABS: ALB/GLOB RATIO 0.8 (0.9-2); ALKALINE PHOSPHATASE 95 U/L (45-117); AST/SGOT 21 U/L (15-37)
[2017-04-04 13:31] VITALS: BP 147/62
[2017-04-04 13:41] VITALS: PULSE 76
== END 2017-04-04 14:17 | disposition home or self-care (01) ==
LOC: C.EDB 10:32 → C.EDC 14:17
DX: S40.261A Insect bite (nonvenomous) of right shoulder, initial encounter (principal); W57.XXXA Bitten or stung by nonvenomous insect and other nonvenomous arthropods, initial encounter; T78.40XA Allergy, unspecified, initial encounter; J45.909 Unspecified asthma, uncomplicated; F32.9 Major depressive disorder, single episode, unspecified; E11.9 Type 2 diabetes mellitus without complications; I10 Essential (primary) hypertension; E66.01 Morbid (severe) obesity due to excess calories; Z79.84 Long term (current) use of oral hypoglycemic drugs; Z86.711 Personal history of pulmonary embolism; Z82.5 Family history of asthma and other chronic lower respiratory diseases; Z82.49 Family history of ischemic heart disease and other diseases of the circulatory system; Z84.1 Family history of disorders of kidney and ureter

== ENCOUNTER → 2017-07-09 | Outpatient (CLI) | payer BC ==
[~2017-07-09] MED LIST changes: +DIPH25CA65 PO; +ETOD400T PO; +FLM4 PO; +GABA-1220 PO; +HYDR-5688 PO; +ONDA4TAB10 SL; +PHEN-775 PO; +TAMS0.4C38 PO
[2017-07-10 05:38] LABS: HEMOGLOBIN A1C 7.6 % (4.5-5.6)
== END | disposition home or self-care (01) ==
LOC: C.LABPVFM 11:45
PROVIDERS: ATTEND Nurse Practitioner
DX: E11.9 Type 2 diabetes mellitus without complications (principal)

== ENCOUNTER → 2017-09-25 | Outpatient (CLI) | payer BC ==
[~2017-09-25] MED LIST changes: -CIPR-255 PO; -DIPH25CA65 PO; -ETOD400T PO; -FLM4 PO; -GABA-1220 PO; -HYDR-5688 PO; -ONDA4TAB10 SL; -PHEN-775 PO; -TAMS0.4C38 PO
--- NOTE | 2017-09-25 16:36 | DIAGNOSTIC IMAGING REPORT ---
KUB HISTORY: Follow-up study in a patient with left-sided nephrolithiasis KUB COMPARISON: CT abdomen and pelvis 01/10/2017 FINDINGS: The bowel gas pattern is non-obstructive. There is no organomegaly. Previously noted punctate calculus of the inferior pole left kidney not identified. No renal or ureteral calculi are seen. Cholecystectomy clips noted. Renal shadows are partially obscured by bowel gas. No pneumoperitoneum or pneumatosis. No fracture. IMPRESSION: No renal or ureteral stones identified. Electronically signed by: Murali Sosa M.D. 09/25/2017 4:34 PM Dictated Date/Time: 09/25/2017 4:33 PM
== END | disposition home or self-care (01) ==
LOC: C.RADPV 16:17
PROVIDERS: ATTEND Nurse Practitioner
DX: R10.9 Unspecified abdominal pain (principal); R31.9 Hematuria, unspecified

== ENCOUNTER → 2017-09-25 | Outpatient (CLI) | payer BC | END | disposition home or self-care (01) | LOC: C.LABPVFM 11:55 | PROVIDERS: ATTEND Nurse Practitioner | DX: R39.9 Unspecified symptoms and signs involving the genitourinary system (principal) ==

== ENCOUNTER 2020-02-20 10:12 | Inpatient (IN) ==
[2020-02-20] MEDS ORDERED: HYDROmorphone INJ 1 MG/ML SYRINGE IV STA ×2 (10:33→11:38)
[2020-02-20] MEDS ORDERED: ONDANSETRON INJ 2 MG/ML 2 ML VIAL IV STA (10:33)
[2020-02-20] MEDS ORDERED: SODIUM CHLORIDE 0.9% 1000ML 1,000 ML IV ONE ×3 (10:33→13:53)
--- NOTE | 2020-02-20 10:44 | Emergency Department Note ---
History of Present Illness General Chief complaint: Kidney Stone Stated complaint: KIDNEY STONE, VOMITING Time Seen by Provider: 02/20/20 10:23 Source: patient Mode of arrival: ambulatory Limitations: no limitations History of Present Illness Provider complaint: Left flank pain, kidney stone Onset (ago): day(s) 2 Radiation: non-radiation Severity: severe Pain Consistency: + colicky Maximum Pain Intensity: 10 Current Pain Intensity: 10 Quality: + sharp Relieved By: + none Exacerbated By: + none Associated symptoms: + other (Urinary hesitancy) Treatments prior to arrival: other (Flomax, oxycodone) This 44-year-old male patient with significant past medical history of type 2 diabetes presents the emergency department today via private vehicle for evaluation of ongoing pain associated with a left-sided kidney stone. The renetta ent has a known 7 mm stone in the proximal left ureter which was diagnosed 2 days ago and CAT scan. The stone did not show up on x-ray or ultrasound imaging. The patient states he has been taking Flomax and OxyIR without relief of his pain. Today, he developed chills and vomiting associated with the pain. The patient states these have been having difficulty sleeping for the past 48 hours due to the pain. He denies any fever, but states he has been having some urinary hesitancy. The patient has not had a chance to contact urology regarding the symptoms. He has not taken any OTC analgesics for his pain. He denies any hematuria. He has had similar symptoms of kidney stones requiring in tervention in the past. Patient denies any movement or change in the pain since Friday. Home Medications Home Medications Medication Instructions Recorded Confirmed Type blood sugar diagnostic #100 ea 05/20/19 02/18/20 Rx blood-glucose meter #1 ea 05/20/19 02/18/20 Rx lancets 33 gauge #100 ea 05/20/19 02/18/20 Rx indomethacin 50 mg capsule 50 mg PO TID PRN #90 cap 12/08/19 02/20/20 Rx glimepiride 4 mg tablet 4 mg PO QAM #90 tab 01/17/20 02/20/20 Rx insulin glargine 100 unit/mL (3 15 units SQ HS #15 ml 01/17/20 02/20/20 Rx mL) subcutaneous pen pregabalin 75 mg capsule 150 mg PO TID #180 cap 01/17/20 02/20/20 Rx pen needle, diabetic 31 gauge x #100 ea 02/08/20 02/18/20 Rx 5/16" docusate sodium [Colace] 100 mg PO BID #60 cap 02/18/20 02/20/20 Rx oxycodone 5 mg PO Q6H PRN #14 tab 02/18/20 02/20/20 Rx sertraline 200 mg PO HS 02/20/20 02/20/20 History tamsulosin [Flomax] 0.4 mg PO QAM 02/20/20 02/20/20 History Allergies Allergy/AdvReac Type Severity Reaction Status Date / Time No Known Allergies Allergy Verified 02/20/20 12:00 Past Med/Surg History Medical History Ankle sprain and strain (Inactive) BPH loc w urin obs/LUTS Diabetes (Chronic) Gout (Chronic) Headache (Resolved) Neuropathy (Chronic) Recurrent nephrolithiasis (Chronic) Rib pain on left side (Acute) intercostal neuralgia Suicidal ideation (Resolved) Social History Smoking Status: Never smoker Second Hand Exposure: No; Hx Alcohol Use: No Hx Substance Use: No Preferred Language: Frisian Communication Ability: Effective Visual Impairment: No Limitations Hearing Ability: Normal Scientific Research Manager Required: No Beliefs That Will Affect Care: None marital status: Current Living Situation: Spouse and Family current occupational status: employed Other Information That Helps Us Care for You: No Feels Safe at Home: Yes Safety Concerns: Feels Safe At This Time Dental Care, Regularly: No Seatbelt Use: never Sunscreen Use: No Review of Systems A total of 10 systems reviewed and were otherwise negative Physical Exam Vital Signs Vital Signs - 24 hr 02/20/20 10:19 02/20/20 10:33 Temperature 37.4 C Temperature Source Oral Pulse Rate 74 Respiratory Rate 18 Respiratory Depth Normal Blood Pressure 161/98 H Blood Pressure Mean 119 Pulse Oximetry 100 96 Oxygen Delivery Method Room Air Room Air Sepsis Recent Fever Within 48 Hours No Sepsis New/Unexplained Change in Mental Status No Sepsis Action Taken by Nursing No Action Required VITALS: Vitals are noted on the nurse's note and reviewed by myself. Vital signs stable. GENERAL: This is a 44-year-old obese white male, in no acute distress, nondia phoretic, well-developed well-nourished. SKIN: The skin was without rashes, erythema, edema, or bruising. There is no tenting of the skin. Capillary refill less than 2 seconds. HEAD: Normocephalic atraumatic. EYES: Conjunctivae without injection, sclerae without icterus. NECK: Supple without nuchal rigidity. No lymphadenopathy. No thyromegaly. Cervical spine is nontender. No JVD. HEART: Regular rate and rhythm without murmurs gallops or rubs. LUNGS: Clear to auscultation bilaterally without wheezes, rales or rhonchi. No retractions or accessory muscle use. ABDOMEN: Positive bowel sounds x 4. Normal tympanic percussion. Soft, nontender, without masses or organomegaly. Positive left CVA tenderness. No guarding or rebound tenderness. MUSCULOSKELETAL: No muscle atrophy, erythema, or edema noted. Full range of motion without joint tenderness in all extremities. No tenderness to palpation. Normal gait. Strength 5/5 throughout. NEURO: Patient was alert and oriented to person place and time. No focal neurological deficits. Course Course The patient was seen and evaluated as above. Previous medical records reviewed. An order was placed for continuous cardiac monitoring. The monitor shows a Normal sinus rhythm at a rate of 74 bpm. IV access obtained, labs drawn. Patient medicated with IV fluids, Dilaudid, Zofran. Labs reviewed by myself. I discussed the findings with the patient at bedside. I discussed the case with urology. I spoke with Dr. Ritter who recommends giving the patient a dose of IV Rocephin, making him n.p.o., obtaining a renal ultrasound to evaluate for hydronephrosis, and admit to medicine with urology consult for possible intervention. I discussed this recommendation with the patient at bedside. He was agreeable with the plan for work-up and admission. Patient given IV Rocephin, Dilaudid, a second liter of IV fluids. I discussed the case with the station manager. I discussed the case with the [facility] hospitalist, Dr. Rodriguez. Please see his dictation regarding ongoing management care of this patient. Administered Medications Discontinued Medications Hydromorphone HCl (Dilaudid) 1 mg IV NOW STA Stop: 02/20/20 10:34 Last Admin: 02/20/20 10:48 Dose: 1 mg Documented by: [id number] Hydromorphone HCl (Dilaudid) 1 mg IV NOW STA Stop: 02/20/20 11:39 Last Admin: 02/20/20 11:43 Dose: 1 mg Documented by: [id number] Sodium Chloride (Nss 1000ml) 1,000 mls @ 999 mls/hr IV .Q1H1M ONE Stop: 02/20/20 11:33 Last Infusion: 02/20/20 11:32 Dose: 0 mls/hr Documented by: [id number] Admin: 02/20/20 10:48 Dose: 999 mls/hr Documented by: [id number] Ceftriaxone Sodium (Rocephin) 2,000 mg in 70 mls @ 140 mls/hr IV NOW STA Stop: 02/20/20 12:17 Last Admin: 02/20/20 12:25 Dose: 140 mls/hr Documented by: [id number] Ondansetron HCl (Zofran) 4 mg IV NOW STA Stop: 02/20/20 10:34 Last Admin: 02/20/20 10:48 Dose: 4 mg Documented by: [id number] Medical Decision Making Differential Diagnosis Renal colic, UTI, infections, pyelonephritis, inflammatory bowel disease, as well as other pathologies. Medical Records Attestation: I reviewed the patient's medical records. Home Medications Current Medication List: was personally reviewed by me Laboratory Data Attestation: I reviewed the patient's lab results. Mild leukocytosis of 11,000. Coags normal. Lipase 102. Mild elevation in creatinine of 1.5. BUN 16. Electrolytes and hepatic function without significant abnormality. Urinalysis appears contaminated, but no clear evidence of infection. Result diagrams: 02/20/20 10:45 02/20/20 10:45 Lab Results 02/20/20 02/20/20 02/20/20 Range/Units 10:45 10:45 10:45 WBC 11.04 H (4.8-10.8) K/uL RBC 4.66 L (4.7-6.1) M/uL Hgb 13.4 L (14.0-18.0) g/dL Hct 41.4 L (42-52) % MCV 88.8 (80-100) fL MCH 28.8 (25-34) pg MCHC 32.4 (32-36) g/dL RDW Std Deviation 45.1 (36.4-46.3) fL RDW Coeff of Amaya 13.9 (11.5-14.5) % Plt Count 207 (130-400) K/uL MPV 9.3 (7.4-10.4) fL Immature Gran % (Auto) 0.6 % Neut % (Auto) 78.6 % Lymph % (Auto) 12.3 % [place] % (Auto) 7.4 % Eos % (Auto) 1.0 % Baso % (Auto) 0.1 % Neut # (Auto) 8.67 H (1.4-6.5) K/uL Lymph # (Auto) 1.36 (1.2-3.4) K/uL [place] # (Auto) 0.82 H (0.11-0.59) K/uL Eos # (Auto) 0.11 (0-0.5) K/uL Baso # (Auto) 0.01 (0-0.2) K/uL Immature Gran # (Auto) 0.07 H (0.00-0.02) K/uL PT 11.0 (9.0-12.0) Seconds INR 1.0 (0.9-1.1) APTT 27.2 (21.0-31.0) Seconds PTT Ratio 1.0 Sodium 139 (136-145) mmol/L Potassium 4.1 (3.5-5.1) mmol/L Chloride 102 (98-107) mmol/L Carbon Dioxide 27 (21-32) mmol/L Anion Gap 10.0 (3-11) BUN 16 (7-18) mg/dl Creatinine 1.54 H (0.6-1.4) mg/dl Est Cr Clr Drug Dosing 93.8 ml/min Est GFR ( Amer) 62.7 Est GFR (Non-Af Amer) 54.1 BUN/Creatinine Ratio 10.3 (10-20) Glucose 178 H (70-99) mg/dl Calcium 9.1 (8.5-10.1) mg/dl Total Bilirubin 0.7 (0.2-1) mg/dl AST 11 L (15-37) U/L ALT 26 (12-78) U/L Alkaline Phosphatase 101 (45-117) U/L Total Protein 8.4 H (6.4-8.2) gm/dl Albumin 3.3 L (3.4-5.0) gm/dl Globulin 5.1 H (2.5-4.0) gm/dl Albumin/Globulin Ratio 0.6 L (0.9-2) Lipase 102 (73-393) U/L Urine Color Urine Appearance (Clear) Urine pH (4.5-7.5) Ur Specific [place] (1.000-1.030) Urine Protein (Negative) Urine Glucose (UA) (Negative) Urine Ketones (Negative) Urine Blood (Negative) Urine Nitrite (Negative) Urine Bilirubin (Negative) Urine Urobilinogen (Negative) Ur Leukocyte Esterase (Negative) Urine WBC (Auto) (0-5) /hpf Urine RBC (Auto) (0-4) /hpf U Hyaline Cast (Auto) (0-5) /lpf U Epithel Cells (Auto) (0-5) /lpf Urine Bacteria (Auto) (Negative) 02/20/20 Range/Units 11:00 WBC (4.8-10.8) K/uL RBC (4.7-6.1) M/uL Hgb (14.0-18.0) g/dL Hct (42-52) % MCV (80-100) fL MCH (25-34) pg MCHC (32-36) g/dL RDW Std Deviation (36.4-46.3) fL RDW Coeff of Amaya (11.5-14.5) % Plt Count (130-400) K/uL MPV (7.4-10.4) fL Immature Gran % (Auto) % Neut % (Auto) % Lymph % (Auto) % [place] % (Auto) % Eos % (Auto) % Baso % (Auto) % Neut # (Auto) (1.4-6.5) K/uL Lymph # (Auto) (1.2-3.4) K/uL [place] # (Auto) (0.11-0.59) K/uL Eos # (Auto) (0-0.5) K/uL Baso # (Auto) (0-0.2) K/uL Immature Gran # (Auto) (0.00-0.02) K/uL PT (9.0-12.0) Seconds INR (0.9-1.1) APTT (21.0-31.0) Seconds PTT Ratio Sodium (136-145) mmol/L Potassium (3.5-5.1) mmol/L Chloride (98-107) mmol/L Carbon Dioxide (21-32) mmol/L Anion Gap (3-11) BUN (7-18) mg/dl Creatinine (0.6-1.4) mg/dl Est Cr Clr Drug Dosing ml/min Est GFR ( Amer) Est GFR (Non-Af Amer) BUN/Creatinine Ratio (10-20) Glucose (70-99) mg/dl Calcium (8.5-10.1) mg/dl Total Bilirubin (0.2-1) mg/dl AST (15-37) U/L ALT (12-78) U/L Alkaline Phosphatase (45-117) U/L Total Protein (6.4-8.2) gm/dl Albumin (3.4-5.0) gm/dl Globulin (2.5-4.0) gm/dl Albumin/Globulin Ratio (0.9-2) Lipase (73-393) U/L Urine Color Yellow Urine Appearance Clear (Clear) Urine pH 6.0 (4.5-7.5) Ur Specific [place] 1.017 (1.000-1.030) Urine Protein Trace H (Negative) Urine Glucose (UA) Trace H (Negative) Urine Ketones Trace H (Negative) Urine Blood Negative (Negative) Urine Nitrite Negative (Negative) Urine Bilirubin Negative (Negative) Urine Urobilinogen Negative (Negative) Ur Leukocyte Esterase Trace H (Negative) Urine WBC (Auto) 1-5 (0-5) /hpf Urine RBC (Auto) 0-4 (0-4) /hpf U Hyaline Cast (Auto) 0 (0-5) /lpf U Epithel Cells (Auto) >30 H (0-5) /lpf Urine Bacteria (Auto) Negative (Negative) Blood Pressure Blood Pressure Findings: Elevated blood pressure Blood Pressure Disposition: elevated BP felt to be situational MDM Narrative This 44-year-old male patient presents the emergency department today for evaluation of kidney stone. He was diagnosed with a stone [address] imaging. Stone was not noted on KUB or ultrasound imaging. The patient is now complaining of chills and increased pain despite the Flomax and OxyIR. He required multiple rounds of IV analgesics while here in the department. Labs concerning for mildly elevated creatinine of 1.54 and mild leukocytosis of 11,000. I did discuss the case with the urologist on-call who recommends admission and will further evaluate the patient for possible intervention. The patient will be admitted to the [facility] hospitalist service. Please see hospitalist dictation regarding ongoing management care of this patient. The chart was completed utilizing [employer] voice recognition software. Grammatical errors, random word insertions, pronoun errors, and incomplete sentences are an occasional consequence of this system due to software limitations, ambient noise, and hardware issues. Any formal questions or concerns about the content, text, or information contained within the body of this dictation should be directly addressed to the provider for clarification. Impression & Plan Calculus of proximal left ureter, Intractable pain Discharge Plan Visit Data Chief Complaint: Kidney Stone Stated Complaint: KIDNEY STONE, VOMITING ED Provider: Gurmeet Bateman ED Midlevel Provider: Marilia Padilla Discharge Problem: Calculus of proximal left ureter, Intractable pain Patient Disposition: Admitted As Inpatient Forms Stand Alone Forms: My [facility] [employer] Prescriptions Prescriptions: No Action (DME) OneTouch Ultra Blue Test Strip strip See Dose Instructions .ROUTE .MEDSUPPLY Qty: 100 RF: 5 (DME) blood-glucose meter [OneTouch Ultra2 Meter] kit See Dose Instructions .ROUTE .MEDSUPPLY Qty: 1 RF: 0 (DME) lancets [OneTouch Delica Lancets] 33 gauge misc See Dose Instructions .ROUTE .MEDSUPPLY Qty: 100 RF: 5 indomethacin 50 mg capsule 50 mg PO TID PRN (Reason: gout) Qty: 90 RF: 1 (DME) pen needle, diabetic [Comfort EZ [place]] 31 gauge x 5/16" needle See Rx Instructions .ROUTE .MEDSUPPLY Qty: 100 RF: 0 glimepiride 4 mg tablet 4 mg PO QAM Qty: 90 RF: 0 pregabalin [Lyrica] 75 mg capsule 150 mg PO TID Qty: 180 RF: 0 Basaglar KwikPen U-100 Insulin 100 unit/mL (3 mL) insulin pen 15 units SQ HS Qty: 15 RF: 2 oxycodone 5 mg tablet 5 mg PO Q6H PRN (Reason: pain) Qty: 14 RF: 0 docusate sodium [Colace] 100 mg capsule 100 mg PO BID Qty: 60 RF: 0 sertraline 100 mg tablet 200 mg PO HS RF: 0 tamsulosin [Flomax] 0.4 mg capsule 0.4 mg PO QAM RF: 0 Referrals Referrals: Angie Garcia MD [Primary Care Provider] -
[2020-02-20 11:02] LABS: Basophils # (auto) 0.01 K/uL (0-0.2); Basophils % (auto) 0.1 %; Eosinophils # (auto) 0.11 K/uL (0-0.5); Hematocrit (blood only) 41.4 % (42-52); Hemoglobin 13.4 g/dL (14.0-18.0); Immature Granulocytes # (auto) 0.07 K/uL (0.00-0.02); Immature Granulocytes % (auto) 0.6 %; Lymphocytes # (auto) 1.36 K/uL (1.2-3.4); Lymphocytes % (auto) 12.3 %; Mean Corpuscular Hemoglobin 28.8 pg (25-34); Mean Corpuscular Hgb Conc 32.4 g/dL (32-36); Mean Corpuscular Volume 88.8 fL (80-100); Mean Platelet Volume 9.3 fL (7.4-10.4); Monocytes # (auto) 0.82 K/uL (0.11-0.59); Monocytes % (auto) 7.4 %; Neutrophils # (auto) 8.67 K/uL (1.4-6.5); Neutrophils % (auto) 78.6 %; Platelet Count 207 K/uL (130-400); RDW Coefficient of Variation 13.9 % (11.5-14.5); RDW Standard Deviation 45.1 fL (36.4-46.3); Red Blood Count 4.66 M/uL (4.7-6.1); White Blood Count 11.04 K/uL (4.8-10.8)
[2020-02-20 11:17] LABS: Appearance Urine Clear (Clear); Bacteria Urine Automated Negative (Negative); Bilirubin Urine Negative (Negative); Blood Urine Negative (Negative); Cast Urine Automated 0 /lpf (0-5); Color Urine Yellow; Epithelial Cell Urine Auto >30 /lpf (0-5); Glucose Urine UA Trace (Negative); Ketones Urine Trace (Negative); Leukocyte Esterase Urine Trace (Negative); Nitrite Urine Negative (Negative); Protein Urine Trace (Negative); RBC Urine Automated 0-4 /hpf (0-4); Specific Gravity Urine 1.017 (1.000-1.030); Urobilinogen Urine Negative (Negative)
[2020-02-20 11:22] LABS: Partial Thromboplastin Time 27.2 Seconds (21.0-31.0)
[2020-02-20 11:24] LABS: Albumin Level 3.3 gm/dl (3.4-5.0); BUN Creatinine Ratio 10.3 (10-20); Calcium 9.1 mg/dl (8.5-10.1); Creatinine Clr Calc Pharmacy 93.8 ml/min; Est GFR (African American) 62.7; Est GFR (Non-African American) 54.1; Potassium 4.1 mmol/L (3.5-5.1)
[2020-02-20 11:26] LABS: Albumin Globulin Ratio 0.6 (0.9-2); Bilirubin,Total 0.7 mg/dl (0.2-1); Globulin 5.1 gm/dl (2.5-4.0); Total Protein 8.4 gm/dl (6.4-8.2)
[2020-02-20] MEDS ORDERED: cefTRIAXone SODIUM 2,000 MG/70 ML BAG IV STA (11:48)
--- NOTE | 2020-02-20 12:07 | History & Physical Report ---
Date of Service February 20, 2020 Assessment & Plan (1) Hydronephrosis with obstructing calculus: IV NSS bolus now, then LR 125 ml/hr Non septic, ceftriaxone requested by urology, will send urine for culture Pain control with IV dilaudid (significant gastritis with NSAIDs) Ondansetron for nausea. Continue tamsulosin 0.4mg PO QAM (for this and BPH) Consult urology (2) Renal colic on left side: Acetaminophen, Dilaudid, oxycodone PRN for pain relief (3) Nausea: Ondansetron IV 4mg Q4H PRN (4) Diabetes: HbA1C with AM labs (previously 10.2 in [facility]) Hold glimepiride Will defer basal insulin while NPO unless BSG uncontrolled (he did not take his usual Lantus last night) Novolog, aim BSG 110-140, correction 50, carb ratio 15 (5) Gout: Significant history of this, recommend discussing allopurinol with his PCP as unclear why he was taken off this. (6) Obstructive sleep apnea: CPAP HS (7) Neuropathy: Continue pregabalin 150mg TID (8) Depression with anxiety: Continue sertraline 200mg PO HS Admission and Anticipated Discharge Date Admission Date: 02/20/2020 History of Present Illness Chief Complaint: Left flank pain Primary Care Provider: Angie Garcia MD Bandar Kaur is a 44 year old male who presents to the ER with increasing pain, chills, nausea and vomiting since diagnosed with left obstructing ureterolithiasis 2 days prior. Since discharge from the ER he initially was doing ok. However the following morning he started having chills. Renal colic pain intermittently getting worse since then, mainly in left flank. Severity 10/10 at worse, currently 6/10. Taking Flomax and oxycodone without relief. Nausea and vomiting (he thinks due to the pain) started this morning with no change in his pain with oxycodone which prompted his reassessment in the ER. ER provider discussed with Dr Ritter and requested admission under medicine for possible ureteral stent later today. US KUB ordered. Allergies Allergy/AdvReac Type Severity Reaction Status Date / Time No Known Allergies Allergy Verified 02/20/20 12:00 Home Medications Home Medications Medication Instructions Recorded Confirmed Type blood sugar diagnostic #100 ea 11/07/19 08/07/20 Rx blood-glucose meter #1 ea 05/20/19 02/18/20 Rx lancets 33 gauge #100 ea 05/20/19 02/18/20 Rx indomethacin 50 mg capsule 50 mg PO TID PRN #90 cap 12/08/19 02/20/20 Rx glimepiride 4 mg tablet 4 mg PO QAM #90 tab 01/17/20 02/20/20 Rx insulin glargine 100 unit/mL (3 15 units SQ HS #15 ml 01/17/20 02/20/20 Rx mL) subcutaneous pen pregabalin 75 mg capsule 150 mg PO TID #180 cap 01/17/20 02/20/20 Rx pen needle, diabetic 31 gauge x #100 ea 02/08/20 02/18/20 Rx 5/16" docusate sodium [Colace] 100 mg PO BID #60 cap 02/18/20 02/20/20 Rx oxycodone 5 mg PO Q6H PRN #14 tab 02/18/20 02/20/20 Rx sertraline 200 mg PO HS 02/20/20 02/20/20 History tamsulosin [Flomax] 0.4 mg PO QAM 02/20/20 02/20/20 History Past Med/Surg History Medical History (Updated 02/21/20 @ 07:48 by Joon Rodriguez MD) Ankle sprain and strain (Inactive) BPH loc w urin obs/LUTS Diabetes (Chronic) Gout (Chronic) Headache (Resolved) Morbid obesity Neuropathy (Chronic) Obstructive sleep apnea Recurrent nephrolithiasis (Chronic) Rib pain on left side (Acute) intercostal neuralgia Suicidal ideation (Resolved) Surgical History History of cholecystectomy (Chronic) History of repair of right rotator cuff (Chronic) Hx of appendectomy (Chronic) Family History Grandfather (Maternal) Myocardial infarction Grandfather (Paternal) Myocardial infarction Grandmother (Maternal) Myocardial infarction Grandmother (Paternal) Myocardial infarction Other Heart disease Denies family history of Ovarian cancer Prostate cancer Breast cancer Colorectal cancer Social History Smoking Status: Never smoker Second Hand Exposure: No; Hx Alcohol Use: No Hx Substance Use: No Preferred Language: Iranian Communication Ability: Effective Visual Impairment: No Limitations Hearing Ability: Normal Guest Services Coordinator Required: No Beliefs That Will Affect Care: None marital status: Current Living Situation: Spouse and Family current occupational status: employed Other Information That Helps Us Care for You: No Feels Safe at Home: Yes Safety Concerns: Feels Safe At This Time Dental Care, Regularly: No Seatbelt Use: never Sunscreen Use: No Review of Systems Review of Systems: All systems reviewed & are unremarkable except as noted in HPI & below Physical Exam Constitutional: well developed, well nourished and + acute distress (left flank pain) Eyes: + anicteric sclerae; normal pupil size ENMT: external ear and nose normal, oropharynx normal Neck: trachea midline, no thyromegaly Respiratory: normal respiratory effort, lungs clear to auscultation Cardiovascular: Rate/Rhythm: regular rate and regular rhythm Heart Sounds: no murmur Extremities: normal capillary refill; no calf tenderness and no pedal edema Gastrointestinal (Abdomen): normal bowel sounds, soft, nontender, no hepatosplenomegaly Musculoskeletal: no cyanosis or clubbing, extremities motor strength 5/5 Skin: no rashes, warm and dry Neurologic: moves all extremities and awake; not confused Psychiatric: A+Ox3, euthymic affect Genitourinary: + CVA tenderness (left sided) Results & Data Results & Data ([facility]) Vital Signs (Past 12 Hours) Vital Signs Temp Pulse Resp BP Pulse Ox 02/20/20 10:33 96 02/20/20 10:19 37.4 C 74 18 161/98 H 100 Diagnostic Findings ULTRASOUND KIDNEYS AND BLADDER IMPRESSION: 1. There is mild left-sided hydronephrosis secondary to the patient's known obstructing left ureteral stone. The stone itself was not visualized on today's ultrasound. 2. There is no right-sided hydronephrosis. 3. Only the right ureteral jet was seen. 4. Hepatomegaly and hepatic steatosis. Code Status & VTE Plan Code Status Full VTE Prophylaxis Plan VTE Prophylaxis will be ordered: No Reason for no VTE drug order: Treatment not indicated Reason for no VTE mechanical prophylaxis: Treatment not indicated PG Care Time/CCT Total # of Minutes Spent Total Time Spent with Patient: Total time spent is greater than 50% in coordination of care (as documented) at patient's floor/unit and/or counseling patient: Coding Level of Care Code 59383 Initial Inpt Care Lvl 2 Diagnoses Hydronephrosis with obstructing calculus N13.2 Renal colic on left side N23 Nausea R11.0 Diabetes E11.9 Gout M10.9 Obstructive sleep apnea G47.33 Neuropathy G62.9 Depression with anxiety F41.8
[2020-02-20] MEDS ORDERED: ACETAMINOPHEN 325 MG TAB PO PRN (13:53)
--- NOTE | 2020-02-20 14:01 | Ultrasound Report ---
ULTRASOUND KIDNEYS AND BLADDER CLINICAL HISTORY: Left flank pain. Known obstructing left ureteral stone. COMPARISON STUDY: Abdominal CT dated 02/18/2020. TECHNIQUE: Real-time, grayscale, and color flow sonography of the kidneys and bladder is performed. I mages are reviewed in the transverse and longitudinal planes. FINDINGS: Kidneys: The kidneys are normal in size and echotexture. The right kidney measures 13.3 cm in length and the left kidney measures 14.2 cm in length. There is mild left-sided hydronephrosis. No shadowing renal calculi are identified. There is no sonographic evidence of contour deforming renal mass lesio n. No perinephric fluid is identified. Bladder: The partially distended bladder is grossly normal in appearance. Only the right ureteral jet was seen. Upper abdomen: Survey images of the liver show evidence of hepatomegaly and hepatic steatosis. IMPRESSION: 1. There is mild left-sided hydronephrosis secondary to the patient's known obstructing left ureteral stone. The stone itself was not visualized on today's ultrasound. 2. There is no right-sided hydronephrosis. 3. Only the right ureteral jet was seen. 4. Hepatomegaly and hepatic steatosis. ACT 112: Negative or not required by law. Electronically signed by: Olaf Rooney M.D. 02/20/2020 1:59 PM
[2020-02-20] MEDS ORDERED: GLUCAGON FOR INJ 1 MG VIAL SQ PRN (14:41)
[2020-02-20] MEDS ORDERED: DEXTROSE 50% 50 ML SYRINGE IV PRN (14:41)
[2020-02-20] MEDS ORDERED: CARBOHYDRATES FOR HYPOGLYCEMIA PO PRN (14:41)
[2020-02-20] MEDS ORDERED: GLUCOSE 40% GEL 15 GM TUBE PO PRN (14:41)
[2020-02-20] MEDS ORDERED: GLUCOSE 10 TABS/TUBE PO PRN (14:41)
[2020-02-20] MEDS: PREGABALIN 150 MG CAP PO SCH ×2 (14:49→22:00)
[2020-02-20] MEDS: HYDROmorphone INJ 0.5 MG/0.5 ML SYR IV PRN ×2 (15:44→21:17)
[2020-02-20] MEDS: ONDANSETRON INJ 2 MG/ML 2 ML VIAL IV PRN ×2 (15:44→21:17)
[2020-02-20] MEDS: LACTATED RINGER'S 1,000 ML IV SCH (15:50)
[2020-02-20] MEDS ORDERED: INSULIN ASPART 100 UNITS/ML 3 ML PEN SC SCH ×2 (16:30→18:00)
[2020-02-20] MEDS ORDERED: Nursing to Pharmacy Communication SCH ×2 (16:30→21:15)
[2020-02-20] MEDS ORDERED: PROPOFOL IV EMULSION 10 MG/ML 20 ML VIAL IV ONE (16:48)
[2020-02-20] MEDS ORDERED: MIDAZOLAM HCL 1 MG/ML 2ML VIAL IV ONE (16:48)
[2020-02-20] MEDS ORDERED: ONDANSETRON INJ 2 MG/ML 2 ML VIAL IV ONE (16:48)
[2020-02-20] MEDS ORDERED: LIDOCAINE HCL 2% 2 ML VIAL/AMP(20MG/ML) INFIL ONE (16:48)
[2020-02-20] MEDS ORDERED: fentaNYL citrate 100 MCG/2 ML VIAL IV ONE (16:48)
--- NOTE | 2020-02-20 18:59 | Urology Consultation ---
Date of Consultation February 20, 2020 Assessment & Plan (1) Hydronephrosis with obstructing calculus: Risks and benefits discussed at length for procedure. These include bleeding, infection, injury to surrounding tissues or organs, and risks associated with anesthesia. Patient states understanding and agrees to proceed. Will sign consent and schedule. Set up for cystoscopy with left stent placement. Agree with plan for supportive care and hydration post procedure. Will monitor post op and plan for follow up in office to discuss treatment. (2) Kidney stone: History of Present Illness Attending Physician: Joon Rodriguez MD History of Present Illness New consultation for patient with stone, discomfort, obstruction, and ill feelings. Patient developed sudden onset of pain into flank going down and radiating into groin and back in waves comes and goes. Can be severe at times. Discussed and reviewed patient's family history for any history of stone disease. Also, discussed patient's medical surgery history especially related to any history of urinary issues or stone disease. Long history of stones. Poorly controlled diabetic. Does have family history of issue. Patient was admitted and is undergoing observation. Allergies Allergy/AdvReac Type Severity Reaction Status Date / Time No Known Allergies Allergy Verified 02/20/20 12:00 Home Medications Home Medications Medication Instructions Recorded Confirmed Type blood sugar diagnostic #100 ea 05/20/19 02/18/20 Rx blood-glucose meter #1 ea 05/20/19 02/18/20 Rx lancets 33 gauge #100 ea 05/20/19 02/18/20 Rx indomethacin 50 mg capsule 50 mg PO TID PRN #90 cap 12/08/19 02/20/20 Rx glimepiride 4 mg tablet 4 mg PO QAM #90 tab 01/17/20 02/20/20 Rx insulin glargine 100 unit/mL (3 15 units SQ HS #15 ml 01/17/20 02/20/20 Rx mL) subcutaneous pen pregabalin 75 mg capsule 150 mg PO TID #180 cap 01/17/20 02/20/20 Rx pen needle, diabetic 31 gauge x #100 ea 02/08/20 02/18/20 Rx 5/16" docusate sodium [Colace] 100 mg PO BID #60 cap 02/18/20 02/20/20 Rx oxycodone 5 mg PO Q6H PRN #14 tab 02/18/20 02/20/20 Rx sertraline 200 mg PO HS 02/20/20 02/20/20 History tamsulosin [Flomax] 0.4 mg PO QAM 02/20/20 02/20/20 History Patient History Medical History Ankle sprain and strain (Inactive) BPH loc w urin obs/LUTS Diabetes (Chronic) Gout (Chronic) Headache (Resolved) Neuropathy (Chronic) Recurrent nephrolithiasis (Chronic) Rib pain on left side (Acute) intercostal neuralgia Suicidal ideation (Resolved) Surgical History History of cholecystectomy (Chronic) History of repair of right rotator cuff (Chronic) Hx of appendectomy (Chronic) Family History Grandfather (Maternal) Myocardial infarction Grandfather (Paternal) Myocardial infarction Grandmother (Maternal) Myocardial infarction Grandmother (Paternal) Myocardial infarction Other Heart disease Denies family history of Ovarian cancer Prostate cancer Breast cancer Colorectal cancer Social History Smoking Status: Never smoker Second Hand Exposure: No; Hx Alcohol Use: No Hx Substance Use: No Preferred Language: German Communication Ability: Effective Visual Impairment: No Limitations Hearing Ability: Normal 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 Patient is well nourished and well kept. HEENT: Normocephalic Atraumatic. Inspection normal. Cranial Nerves 2-12 Grossly intact. Nares are clear. Neck is supple. Normal inspection of face. Normal inspection of neck. Neurologic: No deficits on inspection. Baseline for motor function and sensory. Psychologic: Normal affect. Respiratory: Nonlabored. No use of accessory muscles. No tachypnea or dyspnea. Cardiovascular: No tachycardia Skin: [place] and Dry. No rashes or visible lesions. Extremities: Moving without issues. No motor deficits on inspection Lymphatics: No edema Abdomen: Soft Non-distended. No acites. No rebound or guarding. Obese. Results & Data Vital Signs (Past 12 Hours) Vital Signs Temp Pulse Pulse Resp BP BP Pulse Ox 02/20/20 14:49 36.9 C 70 20 135/80 92 02/20/20 14:00 37.0 C 73 20 126/78 92 02/20/20 12:45 77 16 95 02/20/20 12:30 73 17 95 02/20/20 12:15 90 22 87 L 02/20/20 12:01 70 12 118/65 91 02/20/20 12:00 70 15 89 L 02/20/20 11:45 73 18 97 02/20/20 11:30 75 14 90 02/20/20 11:16 72 13 90 02/20/20 11:14 73 17 95 02/20/20 11:00 65 13 137/81 97 02/20/20 10:33 96 02/20/20 10:19 37.4 C 74 18 161/98 H 100 PG Care Time/CCT Total # of Minutes Spent Total Time Spent with Patient: Total time spent is greater than 50% in coordination of care (as documented) at patient's floor/unit and/or counseling patient: Coding Level of Care Code 30007 Inpt Consult Level 5 Diagnoses Hydronephrosis with obstructing calculus N13.2 Kidney stone N20.0
[2020-02-20] MEDS ORDERED: IOTHALAMATE MEGLUMINE II 17.2% 250 ML VIAL INSTIL ONE (19:24)
[2020-02-20] MEDS ORDERED: ATROPINE SULFATE 0.1 MG/ML 10ML SYR IV PRN (19:25)
[2020-02-20] MEDS ORDERED: ePHEDrine sulfate 50 MG/ML AMP IV PRN (19:25)
[2020-02-20] MEDS ORDERED: ONDANSETRON INJ 2 MG/ML 2 ML VIAL IV PRN (19:25)
[2020-02-20] MEDS ORDERED: HYDROmorphone INJ 1 MG/ML SYRINGE IV PRN (19:25)
[2020-02-20] MEDS ORDERED: LABETALOL HCL IV 5 MG/ML 20ML IV PRN (19:25)
[2020-02-20] MEDS ORDERED: PHENYLEPHRINE 100MCG/ML 5ML SYR IV PRN (19:25)
[2020-02-20] MEDS ORDERED: fentaNYL citrate 100 MCG/2 ML VIAL IV PRN (19:25)
--- NOTE | 2020-02-20 19:34 | Anesthesiology Consultation ---
Date of Service February 20, 2020 The patient was not tested for Covid 19. He has no known contacts with Covid 19 and no symptoms of Covid 19. Assessment & Plan (1) Encounter for pre-operative examination: Chart Review Chart Review: Acceptable Risk for Surgery and Patient NOT seen in Pre Admission Testing Consults Requested none History Surgery Operation Date: 02/20/20 19:15 Proposed Procedures p Ureteral Stent Insertion(Left) - Talon Ritter, Height/Weight Height: 6 ft 1 in Weight: 151 kg Allergies Allergy/AdvReac Type Severity Reaction Status Date / Time No Known Allergies Allergy Verified 02/20/20 12:00 Medications Home Medications Medication Instructions Recorded Confirmed Last Taken blood sugar diagnostic #100 ea 05/20/19 02/18/20 Unknown blood-glucose meter #1 ea 05/20/19 02/18/20 Unknown lancets 33 gauge #100 ea 05/20/19 02/18/20 Unknown indomethacin 50 mg capsule 50 mg PO TID PRN #90 cap 12/08/19 02/20/20 Unknown glimepiride 4 mg tablet 4 mg PO QAM #90 tab 01/17/20 02/20/20 02/18/20 insulin glargine 100 unit/mL (3 15 units SQ HS #15 ml 01/17/20 02/20/20 02/18/20 mL) subcutaneous pen pregabalin 75 mg capsule 150 mg PO TID #180 cap 01/17/20 02/20/20 02/18/20 pen needle, diabetic 31 gauge x #100 ea 02/08/20 02/18/20 Unknown /16" docusate sodium [Colace] 100 mg PO BID #60 cap 02/18/20 02/20/20 02/18/20 oxycodone 5 mg PO Q6H PRN #14 tab 02/18/20 02/20/20 02/20/20 06:00 sertraline 200 mg PO HS 02/20/20 02/20/20 02/18/20 tamsulosin [Flomax] 0.4 mg PO QAM 02/20/20 02/20/20 02/18/20 Active Medications Generic Name Dose Route Start Last Admin Trade Name Freq PRN Reason Stop Dose Admin Hydromorphone HCl 0.5 mg 02/20/20 13:53 02/20/20 15:44 Dilaudid IV 03/05/20 13:52 0.5 mg Q4H PRN Administration Pain Lactated Ringer's 1,000 mls @ 125 mls/hr 02/20/20 15:00 02/20/20 15:50 Lr IV 03/21/20 14:59 125 mls/hr .Q8H SANTOS Administration Ondansetron HCl 4 mg 02/20/20 13:53 02/20/20 15:44 Zofran IV 03/21/20 13:52 4 mg Q4H PRN Administration nausea, vomiting Pregabalin 150 mg 02/20/20 14:00 02/20/20 14:49 Lyrica PO 03/21/20 13:59 Not Given TID SANTOS NPO Date Last Intake of Fluids: 02/20/20 Time Last Intake of Fluids: 06:00 Date Last Intake of Solids: 02/25/20 Time Last Intake of Solids: 18:00 Past Medical History Medical History (Updated 02/20/20 @ 19:34 by You Anaya MD) Ankle sprain and strain (Inactive) BPH loc w urin obs/LUTS Diabetes (Chronic) Encounter for pre-operative examination Gout (Chronic) Headache (Resolved) Morbid obesity Neuropathy (Chronic) Recurrent nephrolithiasis (Chronic) Rib pain on left side (Acute) intercostal neuralgia Suicidal ideation (Resolved) Past Family History Family History Grandfather (Maternal) Myocardial infarction Grandfather (Paternal) Myocardial infarction Grandmother (Maternal) Myocardial infarction Grandmother (Paternal) Myocardial infarction Other Heart disease Denies family history of Ovarian cancer Prostate cancer Breast cancer Colorectal cancer Past Surgical History Surgical History History of cholecystectomy (Chronic) History of repair of right rotator cuff (Chronic) Hx of appendectomy (Chronic) Social History Smoking Status: Never smoker tobacco type: smokeless tobacco Hx Alcohol Use: No alcohol intake frequency: other Hx Substance Use: No substance use type: does not use Physical Exam Vital Signs Last Vital Signs Temp 36.9 C 02/20/20 14:49 Pulse 70 02/20/20 14:49 Resp 20 02/20/20 14:49 BP 135/80 02/20/20 14:49 Pulse Ox 92 02/20/20 14:49 Testing Laboratory Results 02/20/20 10:45 02/20/20 10:45 PT 11.0 Seconds (9.0-12.0) 02/20/20 10:45 INR 1.0 (0.9-1.1) 02/20/20 10:45 APTT 27.2 Seconds (21.0-31.0) 02/20/20 10:45 Urine Color Yellow 02/20/20 11:00 Urine Appearance Clear (Clear) 02/20/20 11:00 Urine pH 6.0 (4.5-7.5) 02/20/20 11:00 Ur Specific [place] 1.017 (1.000-1.030) 02/20/20 11:00 Urine Protein Trace (Negative) H 02/20/20 11:00 Urine Glucose (UA) Trace (Negative) H 02/20/20 11:00 Urine Ketones Trace (Negative) H 02/20/20 11:00 Urine Nitrite Negative (Negative) 02/20/20 11:00 Ur Leukocyte Esterase Trace (Negative) H 02/20/20 11:00 Urine WBC (Auto) 1-5 /hpf (0-5) 02/20/20 11:00 Urine RBC (Auto) 0-4 /hpf (0-4) 02/20/20 11:00 U Hyaline Cast (Auto) 0 /lpf (0-5) 02/20/20 11:00 U Epithel Cells (Auto) >30 /lpf (0-5) H 02/20/20 11:00 Urine Bacteria (Auto) Negative (Negative) 02/20/20 11:00 02/20/20 18:08 POC Glucose 137 H Electrocardiogram Date: 05/15/19 Findings: + NSR @ (37)
--- NOTE | 2020-02-20 20:07 | Operative Report ---
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 Significant debris drained from kidney. Stent placed in good position. Specimens None Drains 6 Fr Multilength Anesthesia Type MAC Complications none Disposition Disposition: Recovery Room Indications Patient with obstruction. Risks and benefits discussed at length. Description of Procedure Patient was consented and brought back to the operating room. Patient was placed under anesthesia in the supine position and moved to the dorsal lithotomy position. Patient was prepped and draped in the regular sterile fashion. A time out was completed. A 30degree Cystoscope was placed after dilating the meatus and advanced to the bulbar urethra where a significant stricture was discovered. A wire was used and the stricture dilated. The scope was then advanced into the bladder and the entire bladder was examined. The UO's were identified. The UO was cannulized with a catheter and a retrograde pyelogram was completed. Significant debris was noted after a wire was then placed. With the wire in place, a 6 Fr Double J stent was placed. It was confirmed with fluoroscopy. With the stent in place, the bladder was emptied. The scope was removed. The patient was cleaned, aroused from anesthesia, and transferred to the pacu in stable condition having tolerated the procedure well with no complications. I was present and participated in all aspects of the procedure. The patient will be monitored in the PACU until transferred. I attest to the content of the Intraoperative Record and any orders documented therein. Any exceptions are noted below.
--- NOTE | 2020-02-20 20:19 | Anesthesiology Progress Note ---
Date of Service February 20, 2020 Anesthesia Post Procedure Vital Signs Vital Signs: Temp Pulse Pulse Resp BP BP Pulse Ox 02/20/20 14:49 36.9 C 70 20 135/80 92 02/20/20 14:00 37.0 C 73 20 126/78 92 02/20/20 12:45 77 16 95 02/20/20 12:30 73 17 95 02/20/20 12:15 90 22 87 L 02/20/20 12:01 70 12 118/65 91 02/20/20 12:00 70 15 89 L 02/20/20 11:45 73 18 97 02/20/20 11:30 75 14 90 02/20/20 11:16 72 13 90 02/20/20 11:14 73 17 95 02/20/20 11:00 65 13 137/81 97 02/20/20 10:33 96 02/20/20 10:19 37.4 C 74 18 161/98 H 100 Pain Intensity Flank: Pain Intensity: 1 Transfer of Care Handoff Completed per policy Notes Mental Status: alert / awake / arousable Patient Amnestic to Procedure: Yes Nausea / Vomiting: adequately controlled Pain: adequately controlled Airway Patency, RR, SpO2: stable & adequate BP & HR: stable & adequate Hydration State: stable & adequate Anesthetic Complications: no major complications apparent and Pt Satisfied with anesthetic care Notes: The patient is awake and comfortable in recovery. His vital signs are stable.
[2020-02-20] MEDS ORDERED: SERTRALINE HCL 100 MG TABLET PO SCH (21:00)
[2020-02-20] MEDS: DOCUSATE SODIUM 100 MG CAP PO SCH (22:00)
[2020-02-20] MEDS: INSULIN ASPART 100 UNITS/ML 3 ML PEN SC SCH (22:31)
[2020-02-21] MEDS: LACTATED RINGER'S 1,000 ML IV SCH ×2 (01:13→08:47)
[2020-02-21] MEDS: ONDANSETRON INJ 2 MG/ML 2 ML VIAL IV PRN ×2 (01:16→05:54)
[2020-02-21] MEDS: HYDROmorphone INJ 0.5 MG/0.5 ML SYR IV PRN ×2 (01:16→05:54)
[2020-02-21 06:04] LABS: Basophils # (auto) 0.02 K/uL (0-0.2); Basophils % (auto) 0.2 %; Eosinophils # (auto) 0.16 K/uL (0-0.5); Eosinophils % (auto) 1.7 %; Hematocrit (blood only) 40.3 % (42-52); Hemoglobin 12.7 g/dL (14.0-18.0); Immature Granulocytes # (auto) 0.07 K/uL (0.00-0.02); Immature Granulocytes % (auto) 0.7 %; Lymphocytes # (auto) 1.49 K/uL (1.2-3.4); Lymphocytes % (auto) 15.4 %; Mean Corpuscular Hemoglobin 28.6 pg (25-34); Mean Corpuscular Hgb Conc 31.5 g/dL (32-36); Mean Corpuscular Volume 90.8 fL (80-100); Mean Platelet Volume 9.6 fL (7.4-10.4); Monocytes # (auto) 0.78 K/uL (0.11-0.59); Monocytes % (auto) 8.1 %; Neutrophils # (auto) 7.14 K/uL (1.4-6.5); Neutrophils % (auto) 73.9 %; Platelet Count 214 K/uL (130-400); RDW Coefficient of Variation 14.2 % (11.5-14.5); Red Blood Count 4.44 M/uL (4.7-6.1); White Blood Count 9.66 K/uL (4.8-10.8)
[2020-02-21 06:38] LABS: BUN Creatinine Ratio 12.5 (10-20); Calcium 9.2 mg/dl (8.5-10.1); Creatinine Clr Calc Pharmacy 107.8 ml/min; Est GFR (African American) 74.1; Potassium 4.3 mmol/L (3.5-5.1)
[2020-02-21 07:18] LABS: Estimated Average Glucose 214 mg/dl; Hemoglobin A1C 9.1 % (4.5-5.6)
--- NOTE | 2020-02-21 07:37 | Fluoroscopy Report ---
FL retrograde includes kub CLINICAL HISTORY: CYSTO, LT STENT PLACEMENT COMPARISON STUDY: Abdomen and pelvis CT 02/18/2020. FLUOROSCOPY TIME: 14 seconds. FINDINGS: 3 fluoroscopic spot images of the abdomen/pelvis. Retrograde opacification of the left uret er with placement of a left ureteral stent. The stent appears in good position. IMPRESSION: Fluoroscopy provided for left ureteral stent placement which appears in good position. ACT 112: Negative or not required by law. Electronically signed by: You Stephen M.D. 02/21/2020 7:36 AM
[2020-02-21] MEDS: PREGABALIN 150 MG CAP PO SCH ×2 (08:47→13:21)
[2020-02-21] MEDS: DOCUSATE SODIUM 100 MG CAP PO SCH (08:48)
[2020-02-21] MEDS: INSULIN ASPART 100 UNITS/ML 3 ML PEN SC SCH ×2 (08:51→12:30)
[2020-02-21] MEDS ORDERED: TAMSULOSIN HCL 0.4 MG CAP PO SCH (09:00)
--- NOTE | 2020-02-21 09:24 | Hospitalist Progress Note ---
Date of Service February 21, 2020 Assessment & Plan (1) Hydronephrosis with obstructing calculus: IV NSS bolus now, then LR 125 ml/hr Non septic, ceftriaxone requested by urology, will send urine for culture Pain control with IV dilaudid (significant gastritis with NSAIDs) Ondansetron for nausea. Continue tamsulosin 0.4mg PO QAM (for this and BPH) Consult urology (2) Renal colic on left side: Acetaminophen, Dilaudid, oxycodone PRN for pain relief (3) Nausea: Ondansetron IV 4mg Q4H PRN (4) Diabetes: HbA1C with AM labs (previously 10.2 in [facility]) Hold glimepiride Will defer basal insulin while NPO unless BSG uncontrolled (he did not take his usual Lantus last night) Novolog, aim BSG 110-140, correction 50, carb ratio 15 (5) Gout: Significant history of this, recommend discussing allopurinol with his PCP as unclear why he was taken off this. (6) Obstructive sleep apnea: CPAP HS (7) Neuropathy: Continue pregabalin 150mg TID (8) Depression with anxiety: Continue sertraline 200mg PO HS Admission and Anticipated Discharge Date Admission Date: February 20, 2020 Results & Data Results & Data ([facility]) Vital Signs (Past 12 Hours) Vital Signs Temp Pulse Pulse Resp BP Pulse Ox 02/21/20 07:15 98.2 F 68 18 129/76 95 02/21/20 03:56 97.3 F L 85 18 143/81 H 92 02/20/20 23:50 98.8 F 77 18 128/78 92 02/20/20 22:49 98.6 F 88 20 130/80 92 02/20/20 21:54 98.6 F 77 18 141/90 H 96 PG Care Time/CCT Total # of Minutes Spent Total Time Spent with Patient: Total time spent is greater than 50% in coordination of care (as documented) at patient's floor/unit and/or counseling patient: Coding Diagnoses Hydronephrosis with obstructing calculus N13.2 Renal colic on left side N23 Nausea R11.0 Diabetes E11.9 Gout M10.9 Obstructive sleep apnea G47.33 Neuropathy G62.9 Depression with anxiety F41.8
[2020-02-21] MEDS ORDERED: cefTRIAXone SODIUM 2,000 MG in DEXTROSE 5% 50 ML IV SCH (12:00)
--- NOTE | 2020-02-21 19:26 | Discharge Summary ---
Date of Service February 21, 2020 Admission HPI Per Admitting Provider Bandar Kaur is a 44 year old male who presents to the ER with increasing pain, chills, nausea and vomiting since diagnosed with left obstructing ureterolithiasis 2 days prior. Since discharge from the ER he initially was doing ok. However the following morning he started having chills. Renal colic pain intermittently getting worse since then, mainly in left flank. Severity 10/10 at worse, currently 6/10. Taking Flomax and oxycodone without relief. Nausea and vomiting (he thinks due to the pain) started this morning with no change in his pain with oxycodone which prompted his reassessment in the ER. ER provider discussed with Dr Ritter and requested admission under medicine for possible ureteral stent later today. US KUB ordered. Principal Diagnosis Left ureteral stent for renal colic suspected associated UTI Discharge Exam The patient appeared well Vital signs as documented. Lungs are clear to auscultation and appear unlabored Cardiac exam, Rhythm is regular.. No murmurs, rubs or gallops. Abdominal exam reveals normal bowel sounds, soft non tender, no masses Extremities are nonedematous and both pedal pulses are normal. Neurologic exam is alert and oriented, no focal loss of strength or sensation Skin is without bruises or rashes Psychologically is without concerns for anxiety or depression Discharge Data Allergies Allergy/AdvReac Type Severity Reaction Status Date / Time No Known Allergies Allergy Verified 02/20/20 12:00 Consultations 02/20/20 12:00 ED Decision to Admit Stat 02/20/20 12:08 Consult Urology Routine Procedures Performed Operation Date: 02/20/20 19:15 Actual Procedures p Cystoscopy; Left Ureteral Stent Insertion(Left) - Talon Ritter DO Ordered Studies 02/20/20 FL retrograde includes kub Routine 02/20/20 11:48 US renal/blad retro comp Stat Hospital Course (1) Hydronephrosis with obstructing calculus: For intervention on 02/19 with stenting Continued outpatient quinolone antibiotics urine culture pending at time of discharge Continue tamsulosin 0.4mg PO QAM (for this and BPH) Consult urology follow-up Dr. Ritter in the office (2) Renal colic on left side: Well-appearing oxycodone for home use will use Tylenol and hydration (3) Nausea: Resolved (4) Diabetes: HbA1C with AM labs (previously 10.2 in [facility]) Resume glimepiride, glargine 15 at bedtime and liraglutide injector (5) Gout: Significant history of this, recommend discussing allopurinol with his PCP as unclear why he was taken off this. (6) Obstructive sleep apnea: CPAP HS (7) Neuropathy: Continue pregabalin 150mg TID (8) Depression with anxiety: Continue sertraline 200mg PO HS Total Time Total Time Spent Total Time Spent (In Minutes): It required greater than 30 minutes to prepare th is patient for discharge Discharge Plan Discharge Items Patient Disposition: Home - Self-Care Reason For Visit: OBSTRUCTING LEFT URETERAL STONE Discharge Diagnosis: obstructing left ureteral stone Activity: Resume your previous activity Non-emergency contact: Primary Care Provider and Urologist Call non-emergency contact if: you have any medication questions and your symptoms worsen Follow-up/Referrals: Talon Ritter DO [Physician] - (Dr. Ritter office will call to schedule apt.) Angie Garcia MD [Primary Care Provider] - Diet: Regular Addtl Attending Provider Instructions: please drink plenty of liquids complete antibiotics follow up with urology Pending Studies at Discharge: Yes (urine culture) Stand-Alone Forms: My [employer], Smoking Cessation Medications and DC Order Prescriptions: New cefixime 400 mg capsule 400 mg PO DAILY 5 Days Qty: 5 RF: 0 Continued (DME) OneTouch Ultra Blue Test Strip strip See Dose Instructions .ROUTE .MEDSUPPLY Qty: 100 RF: 5 (DME) blood-glucose meter [OneTouch Ultra2 Meter] kit See Dose Instructions .ROUTE .MEDSUPPLY Qty: 1 RF: 0 (DME) lancets [OneTouch Delica Lancets] 33 gauge misc See Dose Instructions .ROUTE .MEDSUPPLY Qty: 100 RF: 5 (DME) pen needle, diabetic [Comfort EZ Pen [place]] 31 gauge x 5/16" needle See Rx Instructions .ROUTE .MEDSUPPLY Qty: 100 RF: 0 glimepiride 4 mg tablet 4 mg PO QAM Qty: 90 RF: 0 pregabalin [Lyrica] 75 mg capsule 150 mg PO TID Qty: 180 RF: 0 Basaglar KwikPen U-100 Insulin 100 unit/mL (3 mL) insulin pen 15 units SQ HS Qty: 15 RF: 2 docusate sodium [Colace] 100 mg capsule 100 mg PO BID Qty: 60 RF: 0 sertraline 100 mg tablet 200 mg PO HS RF: 0 tamsulosin [Flomax] 0.4 mg capsule 0.4 mg PO QAM RF: 0 oxycodone 5 mg tablet 5 mg PO Q6H PRN (Reason: pain) Qty: 14 RF: 0 Discontinued indomethacin 50 mg capsule 50 mg PO TID PRN (Reason: gout) Qty: 90 RF: 1 No Action Victoza 2-Leonidas 0.6 mg/0.1 mL (18 mg/3 mL) pen injector See Rx Instructions SQ .COMPLEX Qty: 6 RF: 2 Discharge Orders: Discharge Order (Routine); Ordered 02/21/20 Ordered By: Mikel Hurtado/Other Patient Handouts: Managing Type 2 Diabetes, Managing Diabetes: The A1C Test Admission Data Admit Date/Time: 02/20/20 12:41 Attending Provider: Mikel Barillas Admit Provider: Joon Rodriguez Primary Care Provider: Angie Garcia Other Providers: Joon Rodriguez ; Talon Ritter Other Interventions: Discharge Summary Assessment (RN) Last Done: 02/21/20 14:09 DC Date/Time DO NOT enter until pt leaves facility: 02/21/20 16:49 Coding Level of Care Code D/C Day Management >30 mins Diagnoses Hydronephrosis with obstructing calculus N13.2 Renal colic on left side N23 Nausea R11.0 Diabetes E11.9 Gout M10.9 Obstructive sleep apnea G47.33 Neuropathy G62.9 Depression with anxiety F41.8
== END 2020-02-21 16:49 | disposition home or self-care (01) | DRG 660 ==
LOC: ED 10:12 → 3W 12:41 → SUATTDRO 12:41 → 3W 13:19

== ENCOUNTER 2023-10-16 07:13 | Observation (INO) ==
[2023-10-16] MEDS: ONDANSETRON INJ 2 MG/ML 2 ML VIAL IV STA ×2 (07:28→13:01)
[2023-10-16 07:57] LABS: Basophils # (auto) 0.06 K/uL (0.00-0.20); Basophils % (auto) 0.5 %; Eosinophils # (auto) 0.14 K/uL (0.00-0.50); Eosinophils % (auto) 1.2 %; Hematocrit (blood only) 49.5 % (42.0-52.0); Hemoglobin 16.3 g/dl (14.0-18.0); Immature Granulocytes # (auto) 0.08 K/uL (0.01-0.20); Immature Granulocytes % (auto) 0.7 %; Lymphocytes # (auto) 2.73 K/uL (1.20-3.40); Lymphocytes % (auto) 23.9 %; Mean Corpuscular Hemoglobin 28.8 pg (25.0-34.0); Mean Corpuscular Hgb Conc 32.9 g/dL (32.0-36.0); Mean Corpuscular Volume 87.6 fL (80.0-100.0); Mean Platelet Volume 9.7 fL (9.4-12.4); Monocytes # (auto) 0.58 K/uL (0.11-0.59); Monocytes % (auto) 5.1 %; Neutrophils # (auto) 7.85 K/uL (1.40-6.50); Neutrophils % (auto) 68.6 %; Platelet Count 265 K/uL (130-400); RDW Coefficient of Variation 12.8 % (11.5-14.5); RDW Standard Deviation 40.4 fL (36.4-46.3); Red Blood Count 5.65 M/uL (4.70-6.10); White Blood Count 11.44 K/ul (4.8-10.8)
[2023-10-16 08:14] LABS: Albumin Globulin Ratio 1.2 (0.9-2); Albumin Level 4.5 gm/dl (3.4-5.0); BUN Creatinine Ratio 10.3 (10-20); Bilirubin,Total 0.7 mg/dl (0.2-1.0); Creatinine Clr Calc Pharmacy 149.7 ml/min; Est GFR (African American) 118.3 ml/min; Est GFR (Non-African American) 102.1 ml/min; Globulin 3.8 gm/dl (2.5-4.0); Potassium 4.5 mmol/L (3.5-5.1); Total Protein 8.3 gm/dl (6.0-8.3)
[2023-10-16 08:21] LABS: Troponin I High Sensitivity 6.9 pg/ml (0-20)
[2023-10-16 08:24] LABS: Partial Thromboplastin Time 29 Seconds (21-31); Prothrombin Time 10.9 Seconds (9.0-12.0)
--- NOTE | 2023-10-16 08:33 | XRay Report ---
XR chest 1V portable HISTORY: 48 years-old Male C/P acute chest pain COMPARISON: 10/04/2023 TECHNIQUE: PA view the chest FINDINGS: Cardiomediastinal and hilar silhouettes are within normal limits. No pneumothorax, pleural effusion o r airspace consolidation. Bones appear grossly intact. IMPRESSION: No acute process. ACT 112: Negative or not required by law. The above report was generated using voice recognition software. It may contain grammatical, syntax o r spelling errors. Electronically signed by: Jose Sosa M.D. 10/16/2023 8:31 AM
[2023-10-16] MEDS: PANTOprazole 40 MG TAB PO STA (09:15)
[2023-10-16] MEDS: MoRPHine SULFATE 4 MG/ML 1 ML CARP\\VIAL IV STA ×2 (09:16→12:12)
[2023-10-16] MEDS: ALUMINUM/MAGNESIUM SUSP 30 ML UDC PO STA (09:16)
[2023-10-16] MEDS: ASPIRIN CHEW 324 MG PO STA (09:16)
--- NOTE | 2023-10-16 09:21 | Emergency Department Note ---
Impression & Plan Chest pain, Abnormal cardiovascular stress test ED Provider Note NAME: YUE WELLS AGE: 48 SEX: M : 1975 ARRIVES VIA: Walk-In INFORMANT: Patient, ED PROVIDER(S): Boy Shearer DO CHIEF COMPLAINT: Chest pain HPI: The patient is a 48-year-old male who presented to the emergency department for an evaluation of chest pain. The patient describes anterior chest pain over the left side. The patient states this pain is intermittent and sometimes worsened with exertion. He also started noticing nausea and vomiting today. He denies having any abdominal pain or back pain. He was seen in our facility for similar complaints a few weeks ago. He did follow-up with his primary care physician but no other testing was ordered. The patient has a history of diabetes. He also has a history of hyperlipidemia. He has a family history of heart disease and uses tobacco products. ROS: See above HPI for pertinent positives & negatives. A total of 10 systems reviewed and were otherwise negative. PAST MEDICAL HISTORY: See Below PAST SURGICAL HISTORY: See Below FAMILY HISTORY: See Below SOCIAL HISTORY: See Below HOME MEDICATIONS: See Below ALLERGIES: See Below VITALS: See Below PHYSICAL EXAMINATION: GENERAL: Patient is awake alert in no acute distress patient is resting comfortably and showing no signs of anxiety EYES: The conjunctivae are clear. The pupils are round and reactive. EARS, NOSE, MOUTH AND THROAT: The nose is without any evidence of any deformity. NECK: The neck is nontender and supple. RESPIRATORY: Normal respiratory effort is noted there is no evidence of wheezing rhonchi or rales CARDIOVASCULAR: Regular rate and rhythm noted there no murmurs rubs or gallops normal S1 normal S2. GASTROINTESTINAL: The abdomen is soft. Abdomen is nontender. MUSCULOSKELETAL/EXTREMITIES: There is no evidence of gross deformity full range of motion is noted in the hips and shoulders. SKIN: There is no obvious evidence of any rash. There are no petechiae, pallor or cyanosis noted. NEUROLOGIC: Patient is awake alert and oriented x3 strength is symmetric patellar reflexes are 2+ bilaterally MEDICAL DECISION MAKING: The patient is a 48-year-old male who presented to the emergency department for an evaluation of chest pain. The patient presented to our emergency department a few weeks ago with similar complaints. The patient had a follow-up appointment with his family doctor but no provocative testing was ordered. The patient returns today because of ongoing and worsening symptoms. I discussed the patient's laboratory and radiographic studies with him. I discussed the limitations of the emergency department workup for chest pain with him. Ultimately given the patient's risk factors as well as his outpatient situation I discussed his condition with the on-call [facility] hospitalist. They did recommend that I discussed the case with cardiology who did agree to doing a stress test. Stress test was not able to be done completely. The patient did have an echo however. After I discussed the patient with cardiology they recommended inpatient workup to further evaluate the patient's condition. They do feel this could be consistent with pericarditis. Triage Nursing notes reviewed. Prior medical records reviewed Vital Signs: reviewed and remarkable for no significant abnormalities Differential diagnosis: Cardiac ischemia, aortic dissection, pulmonary embolism, pneumothorax, pneumonia, pericarditis, myocarditis, esophageal rupture, GERD, cholecystitis, pancreatitis, musculoskeletal, as well as other pathologies. ER treatment provided: See below Diagnostics interpreted by me: ECG: EKG was obtained in the emergency department. My interpretation is normal sinus rhythm at 85 bpm. There is no ectopy. There is no acute ST segment abnormalities noted. This was compared to a tracing from October 04, 2023. No changes were noted. Cardiac Monitoring: An order was placed for continuous cardiac monitoring. The monitor shows a rate of 70 bpm with sinus rhythm. Laboratory studies: As stated above and show below. Imaging studies: See below. Radiographic imaging was reviewed by myself Consultation(s): I discussed this case with Dr. Rodriguez who is on-call for the [facility] hospitalist group. I discussed this case with Dr. Ordonez who is on-call for the [facility] cardiology group. Past Med/Surg History Medical History (Updated 10/16/23 @ 14:53 by Boy Shearer DO) Obstructive sleep apnea CPAP Hyperlipidemia Vitamin D deficiency Diabetic peripheral neuropathy Insulin resistance Uncontrolled type 2 diabetes mellitus Osteoarthritis Kidney stones Depression Morbid obesity BPH loc w urin obs/LUTS Recurrent nephrolithiasis Rib pain on left side intercostal neuralgia Diabetes Type 2 IDDM Gout hx Neuropathy Surgical History History of renal stent History of lithotripsy History of bronchoscopy to rule out pulmonary embolisms (~2011) History of colonoscopy History of cholecystectomy Hx of appendectomy History of repair of right rotator cuff Family History Grandfather (Maternal) Myocardial infarction Grandfather (Paternal) Myocardial infarction Diabetes Grandmother (Maternal) Myocardial infarction Grandmother (Paternal) Myocardial infarction Diabetes Other Heart disease No family history of adverse response to anesthesia Denies family history of Ovarian cancer Prostate cancer Breast cancer Colorectal cancer Social History Smoking Status: Never smoker Cigarettes Per Day: 1 cigar occasionally; Second Hand Exposure: No; Do You Dip or Chew Tobacco: Yes; Hx Alcohol Use: Yes Hx Substance Use: No Preferred Language: Botswanan Communication Ability: Effective Visual Impairment: No Limitations Hearing Ability: Normal Credit Rating Inspector Required: No Beliefs That Will Affect Care: None marital status: Current Living Situation: Spouse and Family current occupational status: employed current occupation: [employer] How many Children do You have: 1 Feels Safe at Home: Yes Childhood Exposure to Second-Hand Smoke: Yes Diet: regular caffeine: Yes Dental Care, Regularly: No Physical Activity Frequency: Daily Seatbelt Use: never Sunscreen Use: No Assistive Devices: None Allergies Allergies Allergy/AdvReac Type Severity Reaction Status Date / Time No Known Allergies Allergy Verified 10/16/23 12:02 Home Meds Home Medications Medication Instructions Recorded Confirmed multivitamin 1 tab PO HS 03/04/23 10/16/23 insulin glargine U-300 conc 300 100 unit subcut AMHS 10/04/23 10/16/23 unit/mL (3 mL) subcutaneous pen (Toujeo Max U-300 SoloStar) indomethacin 75 mg 0 mg PO BID PRN GOUT 10/16/23 10/16/23 capsule,extended release tirzepatide 2.5 mg/0.5 mL 2.5 mg subcut WK 10/16/23 10/16/23 subcutaneous pen injector (Vanessa) Previous Rx's Medication Instructions Recorded atorvastatin 40 mg tablet (Lipitor) 40 mg PO QPM #90 tabs 09/03/23 blood-glucose sensor (FreeStyle #2 ea 09/03/23 Ryan 3 Sensor device) pen needle, diabetic 31 gauge x #100 ea 09/15/23 3/16" (BD Ultra-Fine Mini Pen Needle) duloxetine 20 mg capsule,delayed 20 mg PO BID #60 caps 09/29/23 release pregabalin 75 mg capsule (Lyrica) 150 mg (2 x 75 mg) PO TID 30 days 09/29/23 #180 caps indomethacin 50 mg capsule 50 mg PO TID #90 caps 10/09/23 Results & Data (ED) Vital Signs Vital Signs - 24 hr 10/16/23 07:21 10/16/23 09:06 10/16/23 11:47 Temperature 36.6 C Temperature Source Temporal Artery Scan Pulse Rate 84 Pulse Rate [Apical] 72 62 Respiratory Rate 20 20 20 Respiratory Effort / Characteristics Non-Labored Non-Labored Spontaneous Respiratory Depth Normal Normal Blood Pressure 192/154 H Blood Pressure [Right Arm] 132/88 146/82 H Blood Pressure Mean 166 Blood Pressure Mean [Right Arm] 102 103 Pulse Oximetry 96 94 97 Oxygen Delivery Method Room Air Room Air Room Air Sepsis Recent Fever Within 48 Hours No Sepsis New/Unexplained Change in Mental Status No Sepsis Action Taken by Nursing No Action Required Home Medications Current Medication List: was personally reviewed by me Laboratory Data Attestation: I reviewed the patient's lab results. 10/16/23 07:31 10/16/23 07:31 Lab Results 10/16/23 Range/Units 07:31 WBC 11.44 H (4.8-10.8) K/ul RBC 5.65 (4.70-6.10) M/uL Hgb 16.3 (14.0-18.0) g/dl Hct 49.5 (42.0-52.0) % MCV 87.6 (80.0-100.0) fL MCH 28.8 (25.0-34.0) pg MCHC 32.9 (32.0-36.0) g/dL RDW Std Deviation 40.4 (36.4-46.3) fL RDW Coeff of Amaya 12.8 (11.5-14.5) % Plt Count 265 (130-400) K/uL MPV 9.7 (9.4-12.4) fL Immature Gran % (Auto) 0.7 % Neut % (Auto) 68.6 % Lymph % (Auto) 23.9 % [place] % (Auto) 5.1 % Eos % (Auto) 1.2 % Baso % (Auto) 0.5 % Neut # (Auto) 7.85 H (1.40-6.50) K/uL Lymph # (Auto) 2.73 (1.20-3.40) K/uL [place] # (Auto) 0.58 (0.11-0.59) K/uL Eos # (Auto) 0.14 (0.00-0.50) K/uL Baso # (Auto) 0.06 (0.00-0.20) K/uL Immature Gran # (Auto) 0.08 (0.01-0.20) K/uL ESR 61 H (0-15) mm/hr PT 10.9 (9.0-12.0) Seconds INR 1.0 (0.9-1.1) APTT 29 (21-31) Seconds PTT Ratio 1.0 Sodium 138 (136-145) mmol/L Potassium 4.5 (3.5-5.1) mmol/L Chloride 101 (98-107) mmol/L Carbon Dioxide 30 (21-32) mmol/L Anion Gap 7 (3-11) BUN 9 (6-23) mg/dl Creatinine 0.87 (0.6-1.4) mg/dl Est Cr Clr Drug Dosing 149.7 ml/min Est GFR ( Amer) 118.3 ml/min Est GFR (Non-Af Amer) 102.1 ml/min BUN/Creatinine Ratio 10.3 (10-20) Glucose 133 H (70-99(Fasting)) mg/dl Calcium 10.0 (8.6-10.3) mg/dl Total Bilirubin 0.7 (0.2-1.0) mg/dl AST 13 (13-39) U/L ALT 13 (7-52) U/L Alkaline Phosphatase 108 H (34-104) U/L Troponin I High Sens 6.9 (0-20) pg/ml Total Protein 8.3 (6.0-8.3) gm/dl Albumin 4.5 (3.4-5.0) gm/dl Globulin 3.8 (2.5-4.0) gm/dl Albumin/Globulin Ratio 1.2 (0.9-2) Lipase 27 (11-82) U/L Lyme Disease Screen Negative (Negative) Administered Medications Acetaminophen (Acetaminophen 325 Mg Tab) 650 mg PO Q4H PRN PRN Reason: Pain or fever Stop: 11/15/23 13:21 Last Admin: 10/16/23 14:24 Dose: 650 mg Documented By: WESLEY Pregabalin (Pregabalin 150 Mg Cap) 150 mg PO TID [facility] Stop: 11/15/23 13:59 Last Admin: 10/16/23 14:24 Dose: 150 mg Documented By: WESLEY Discontinued Medications Al Hydrox/Mg Hydrox/Simethicone (Aluminum/Magnesium Susp 30 Ml Udc) 30 ml PO NOW STA Stop: 10/16/23 09:10 Last Admin: 10/16/23 09:16 Dose: 30 ml Documented By: SHAWNA Aspirin (Aspirin Chew 324 Mg) 324 mg PO NOW STA Stop: 10/16/23 09:09 Last Admin: 10/16/23 09:16 Dose: 324 mg Documented By: SHAWNA Colchicine (Colchicine 0.6 Mg Tab) 1.2 mg PO NOW ONE Stop: 10/16/23 12:30 Last Admin: 10/16/23 13:01 Dose: 1.2 mg Documented By: ALTON Famotidine (Pepcid 20mg Iv Push) 20 mg in 5 mls @ 2.5 mls/min IV NOW STA Stop: 10/16/23 12:30 Last Admin: 10/16/23 13:02 Dose: 2.5 mls/min Documented By: ALTON Ketorolac Tromethamine (Ketorolac Tromethamine 15 Mg/Ml Vial) 10 mg IV NOW ONE Stop: 10/16/23 10:28 Last Admin: 10/16/23 11:37 Dose: 10 mg Documented By: WESLEY Morphine Sulfate (Morphine Sulfate 4 Mg/Ml 1 Ml Carp\\Vial) 4 mg IV NOW STA Stop: 10/16/23 09:09 Last Admin: 10/16/23 09:16 Dose: 4 mg Documented By: SHAWNA Morphine Sulfate (Morphine Sulfate 4 Mg/Ml 1 Ml Carp\\Vial) 4 mg IV NOW STA Stop: 10/16/23 12:07 Last Admin: 10/16/23 12:12 Dose: 4 mg Documented By: ALTON Nitroglycerin (Nitroglycerin Sl 0.4 Mg/Tab Tab) Confirm Administered Dose 0.4 mg .ROUTE .STK-MED ONE Stop: 10/16/23 11:11 Last Admin: 10/16/23 11:39 Dose: Not Given Documented By: WESLEY Ondansetron HCl (Ondansetron Inj 2 Mg/Ml 2 Ml Vial) 4 mg IV NOW STA Stop: 10/16/23 07:24 Last Admin: 10/16/23 07:28 Dose: 4 mg Documented By: WESLEY Ondansetron HCl (Ondansetron Inj 2 Mg/Ml 2 Ml Vial) 4 mg IV NOW STA Stop: 10/16/23 12:31 Last Admin: 10/16/23 13:01 Dose: 4 mg Documented By: ALTON Pantoprazole Sodium (Pantoprazole 40 Mg Tab) 40 mg PO NOW STA Stop: 10/16/23 09:10 Last Admin: 10/16/23 09:15 Dose: 40 mg Documented By: SHAWNA Imaging Data Attestation: I personally reviewed and interpreted this imaging study as follows: My Impression: 1 view chest x-ray was obtained in the emergency department. My interpretation is no free air or definite infiltrate, final report below. Radiologist's Impression: Chest X-Ray 10/16/23 07:40 XR chest 1V portable HISTORY: 48 years-old Male C/P acute chest pain COMPARISON: 10/04/2023 TECHNIQUE: PA view the chest FINDINGS: Cardiomediastinal and hilar silhouettes are within normal limits. No pneumothorax, pleural effusion or airspace consolidation. Bones appear grossly intact. IMPRESSION: No acute process. ACT 112: Negative or not required by law. The above report was generated using voice recognition software. It may contain grammatical, syntax or spelling errors. Electronically signed by: Jose Sosa M.D. 10/16/2023 8:31 AM Discharge Plan Visit Data Chief Complaint: Cardiac Assessment Stated Complaint: VOMITING ED Provider: Boy Shearer Discharge Problem: Chest pain, Abnormal cardiovascular stress test Patient Disposition: Being Evaluated by Hospitalist Discharge Instructions Interventions: ED Discharge Assessment Last Done: 10/16/23 13:22 Discharge Problem: Chest pain Qualifiers: Chest pain type: unspecified Qualified Code(s): R07.9 - Chest pain, unspecified
[2023-10-16] MEDS: KETOROLAC TROMETHAMINE 15 MG/ML VIAL IV ONE (11:37)
[2023-10-16] MEDS: NITROGLYCERIN SL 0.4 MG/TAB TAB ONE (11:39)
--- NOTE | 2023-10-16 12:07 | History & Physical Report ---
Date of Service October 16, 2023 Assessment & Plan (1) Pericarditis: Plan: CRP/ESR/lyme screen added Not taken indomethacin - just had gout flare up last week, didn't take. No wall motion abnormality on echocardiogram Colchicine + ibuprofen (2) Chest pain: Plan: Suspect due to pericarditis Hours of pain with negative troponin - not consistent with ACS BP/pulse equal b/l with negative d-dimer - negligible probability for aortic dissection Lack of improvement with Maalox/pantoprazole, suspect more likely pericarditis than GI in origin (3) Diabetes: Plan: Hemoglobin A1C 10.7 in August Usually on Toujeo 100 units BID (last took 4/ evening), will hold currently given current low glucose measurements, restart basal dosing once glucose increasing Not currently taking Mounjaro due to supply issues Novolog: --Goal BSG Range: Low 110 mg/dL, High 140 mg/dL --Correction Factor: 45 mg/dL/unit --Carbohydrate ratio = 15 g/unit --BSGs ACHS if eating, q6h if npo (4) Obstructive sleep apnea: Plan: CPAP HS Plan VTE Prophylaxis - Lovenox 40mg SQ daily Diet - heart healthy, T2DM Disposition - observation to med/tele Admission and Anticipated Discharge Date Admission Date: October 16, 2023 History of Present Illness Chief Complaint: Chest pain Primary Care Provider: Angie Garcia MD Bandar Kaur is a 48 year old male who presents to the ER with chest pain. Started yesterday evening and slowly getting progressively worse. Worse on lying down. No worse on exertion. Constant ache with intermittent sharp pain. Associated numbness/tingling in right upper extremity 4th and 5th digits since it started, associated nausea with one episode of vomiting this morning. No acid taste. He was seen in the ER with the same symptoms on October 03 which resolved after a few days. He denies any cervical radicular symptoms usually. No neck pain. Allergies Allergy/AdvReac Type Severity Reaction Status Date / Time No Known Allergies Allergy Verified 10/16/23 12:02 Home Medications Medication Instructions Recorded Confirmed Type multivitamin 1 tab PO HS 03/04/23 10/16/23 History atorvastatin 40 mg tablet (Lipitor) 40 mg PO QPM #90 tabs 09/03/23 10/16/23 Rx blood-glucose sensor (FreeStyle #2 ea 09/03/23 10/09/23 Rx Ryan 3 Sensor device) pen needle, diabetic 31 gauge x #100 ea 09/15/23 10/09/23 Rx 3/16" (BD Ultra-Fine Mini Pen Needle) duloxetine 20 mg capsule,delayed 20 mg PO BID #60 caps 09/29/23 10/16/23 Rx release pregabalin 75 mg capsule (Lyrica) 150 mg (2 x 75 mg) PO TID 30 days 09/29/23 10/16/23 Rx #180 caps insulin glargine U-300 conc 300 100 unit subcut AMHS 10/04/23 10/16/23 History unit/mL (3 mL) subcutaneous pen (Toujeo Max U-300 SoloStar) indomethacin 50 mg capsule 50 mg PO TID #90 caps 10/09/23 10/16/23 Rx indomethacin 75 mg 0 mg PO BID PRN GOUT 10/16/23 10/16/23 History capsule,extended release tirzepatide 2.5 mg/0.5 mL 2.5 mg subcut WK 10/16/23 10/16/23 History subcutaneous pen injector (Mounjaro) Past Med/Surg History Medical History (Updated 10/17/23 @ 00:04 by Luis Mercado) Obstructive sleep apnea CPAP Hyperlipidemia Vitamin D deficiency Diabetic peripheral neuropathy Insulin resistance Uncontrolled type 2 diabetes mellitus Osteoarthritis Kidney stones Depression Morbid obesity BPH loc w urin obs/LUTS Recurrent nephrolithiasis Rib pain on left side intercostal neuralgia Diabetes Type 2 IDDM Gout hx Neuropathy Surgical History History of renal stent History of lithotripsy History of bronchoscopy to rule out pulmonary embolisms (~2011) History of colonoscopy History of cholecystectomy Hx of appendectomy History of repair of right rotator cuff Family History Grandfather (Maternal) Myocardial infarction Grandfather (Paternal) Myocardial infarction Diabetes Grandmother (Maternal) Myocardial infarction Grandmother (Paternal) Myocardial infarction Diabetes Other Heart disease No family history of adverse response to anesthesia Denies family history of Ovarian cancer Prostate cancer Breast cancer Colorectal cancer Social History Smoking Status: Never smoker Tobacco Type: Smokeless Tobacco (Dip or Chew) Cigarettes Per Day: 1 cigar occasionally; Second Hand Exposure: No; Do You Dip or Chew Tobacco: Yes; Tobacco Cessation Education Requested by Patient: No Hx Alcohol Use: Yes Alcohol type: beer Hx Substance Use: No Preferred Language: Luxembourgish Communication Ability: Effective Visual Impairment: No Limitations Hearing Ability: Normal Tinning Equipment Tender Required: No Beliefs That Will Affect Care: None marital status: Current Living Situation: Family current occupational status: employed 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 How many Children do You have: 1 Other Information That Helps Us Care for You: No Feels Safe at Home: Yes Safety Concerns: Feels Safe At This Time Childhood Exposure to Second-Hand Smoke: Yes Diet: regular caffeine: Yes Dental Care, Regularly: No Physical Activity Frequency: Daily Seatbelt Use: never Sunscreen Use: No Assistive Devices: None Review of Systems Review of Systems: All systems reviewed & are unremarkable except as noted in HPI & below Physical Exam Constitutional: WD/WN, vitals as above Eyes: PERRL, conjunctivae normal, anicteric sclerae ENMT: external ear and nose normal, oropharynx normal Neck: trachea midline, no thyromegaly Respiratory: normal respiratory effort, lungs clear to auscultation Cardiovascular: RRR, no murmur, no edema Gastrointestinal (Abdomen): normal bowel sounds, soft, nontender, no hepatosplenomegaly Musculoskeletal: no cyanosis or clubbing, extremities motor strength 5/5 Skin: no rashes, warm and dry Neurologic: moves all extremities and awake; not confused Motor/Sensory: + sensory deficit (right UE 4th/5th digit tingling) Psychiatric: A+Ox3, euthymic affect Results & Data Results & Data Vital Signs (Past 12 Hours) Vital Signs Temp Pulse Pulse Resp BP BP Pulse Ox 10/16/23 11:47 62 20 146/82 H 97 10/16/23 09:06 72 20 132/88 94 10/16/23 07:21 36.6 C 84 20 192/154 H 96 O2 Del Method 10/16/23 11:47 Room Air 10/16/23 09:06 Room Air 10/16/23 07:21 Room Air Blood pressure: Left 135/87 Right 132/82 Laboratory Results Abnormal lab results 10/16/23 Range/Units 07:31 WBC 11.44 H (4.8-10.8) K/ul Neut # (Auto) 7.85 H (1.40-6.50) K/uL Glucose 133 H (70-99(Fasting)) mg/dl Alkaline Phosphatase 108 H (34-104) U/L Diagnostic Findings XR chest 1V portable HISTORY: 48 years-old Male C/P acute chest pain COMPARISON: 10/04/2023 TECHNIQUE: PA view the chest FINDINGS: Cardiomediastinal and hilar silhouettes are within normal limits. No pneumothorax, pleural effusion or airspace consolidation. Bones appear grossly intact. IMPRESSION: No acute process. Medications Administered ER Medication Given: Ondansetron 4mg IV Aspirin 324mg PO Morphine 4mg IV Pantoprazole 40mg PO Maalox 30ml Toradol 10mg IV Morphine 4mg IV ECG Rate (beats per minute): 65 Rhythm: normal sinus Findings: + ST elevation (widespread) Comparison ECG Date: from (October 04, 2023) Change: the following changes noted (widespread ST elevation are now present) Code Status & VTE Plan Code Status Full VTE Prophylaxis Plan VTE Prophylaxis will be ordered: Yes PG Care Time/CCT Total # of Minutes Spent Total Time Spent with Patient: Total time spent is greater than 50% in coordination of care (as documented) at patient's floor/unit and/or counseling patient: Coding Level of Care Code 97443 INT INP/OBS CARE MIN Diagnoses Pericarditis I31.9 Chest pain R07.9 Chest pain type: unspecified Diabetes E11.9 Obstructive sleep apnea G47.33 (2) Chest pain Chest pain type: unspecified Qualified Code(s): R07.9 - Chest pain, unspecified
[2023-10-16] MEDS: COLCHICINE 0.6 MG TAB PO ONE (13:01)
[2023-10-16] MEDS: FAMOTIDINE 20MG IV PUSH 20 MG/5 ML SYR IV STA (13:02)
[2023-10-16] MEDS ORDERED: ONDANSETRON INJ 2 MG/ML 2 ML VIAL IV PRN (13:22)
[2023-10-16] MEDS ORDERED: GLUCAGON FOR INJ 1 MG VIAL SQ PRN (13:22)
[2023-10-16] MEDS ORDERED: GLUCOSE 40% GEL 15 GM TUBE PO PRN (13:22)
[2023-10-16] MEDS ORDERED: CARBOHYDRATES FOR HYPOGLYCEMIA PO PRN (13:22)
[2023-10-16] MEDS ORDERED: GLUCOSE 10 TAB/TUBE PO PRN (13:22)
[2023-10-16] MEDS ORDERED: DEXTROSE 50% 50 ML SYRINGE IV PRN (13:22)
[2023-10-16] MEDS: PREGABALIN 150 MG CAP PO SCH (14:24)
[2023-10-16] MEDS: ACETAMINOPHEN 325 MG TAB PO PRN (14:24)
[2023-10-16 15:37] LABS: Troponin I High Sensitivity 4.1 pg/ml (0-20)
[2023-10-16 15:45] LABS: C Reactive Protein 1.55 mg/dl (0-0.5)
[2023-10-16] MEDS: IBUPROFEN 600 MG TAB PO STA (16:25)
--- NOTE | 2023-10-16 17:05 | XCELERA ---
[id number] [id number]
[2023-10-16] MEDS: INSULIN ASPART PER UNIT CHARGE SC SCH (18:15)
[2023-10-16 18:27] LABS: D Dimer 310 ug/L FEU (0-500)
[2023-10-16] MEDS: oxyCODONE HCL IR 5 MG TAB (IMMEDIATE RELEASE) PO PRN (20:06)
[2023-10-16] MEDS: IBUPROFEN 600 MG TAB PO SCH (20:07)
[2023-10-16] MEDS: ATORVASTATIN 40 MG TAB PO SCH (20:07)
[2023-10-16] MEDS: DULoxetine HCL 20 MG CAP PO SCH (20:07)
[2023-10-16] MEDS: COLCHICINE 0.6 MG TAB PO SCH (20:07)
[2023-10-16] MEDS: ENOXAPARIN INJ 40 MG/0.4 ML SYR SQ SCH (22:57)
[2023-10-17 06:38] LABS: Basophils # (auto) 0.09 K/uL (0.00-0.20); Basophils % (auto) 0.8 %; Eosinophils # (auto) 0.18 K/uL (0.00-0.50); Eosinophils % (auto) 1.6 %; Hematocrit (blood only) 46.3 % (42.0-52.0); Hemoglobin 15.1 g/dl (14.0-18.0); Immature Granulocytes # (auto) 0.07 K/uL (0.01-0.20); Immature Granulocytes % (auto) 0.6 %; Lymphocytes # (auto) 3.58 K/uL (1.20-3.40); Lymphocytes % (auto) 32.4 %; Mean Corpuscular Hemoglobin 28.5 pg (25.0-34.0); Mean Corpuscular Hgb Conc 32.6 g/dL (32.0-36.0); Mean Corpuscular Volume 87.4 fL (80.0-100.0); Mean Platelet Volume 9.5 fL (9.4-12.4); Monocytes # (auto) 0.77 K/uL (0.11-0.59); Neutrophils # (auto) 6.35 K/uL (1.40-6.50); Neutrophils % (auto) 57.6 %; Platelet Count 244 K/uL (130-400); RDW Coefficient of Variation 12.8 % (11.5-14.5); RDW Standard Deviation 40.4 fL (36.4-46.3); White Blood Count 11.04 K/ul (4.8-10.8)
[2023-10-17 07:00] LABS: BUN Creatinine Ratio 14.3 (10-20); Calcium 9.5 mg/dl (8.6-10.3); Creatinine Clr Calc Pharmacy 153.3 ml/min; Est GFR (African American) 105.2 ml/min; Est GFR (Non-African American) 90.8 ml/min; Potassium 4.4 mmol/L (3.5-5.1)
[2023-10-17 07:05] LABS: Troponin I High Sensitivity 3.6 pg/ml (0-20)
[2023-10-17] MEDS: PANTOprazole 40 MG TAB PO SCH (08:30)
--- NOTE | 2023-10-17 11:33 | Discharge Summary ---
Date of Service October 17, 2023 Admission HPI Per Admitting Provider Bandar Kaur is a 48 year old male who presents to the ER with chest pain. Started yesterday evening and slowly getting progressively worse. Worse on lying down. No worse on exertion. Constant ache with intermittent sharp pain. Associated numbness/tingling in right upper extremity 4th and 5th digits since it started, associated nausea with one episode of vomiting this morning. No acid taste. He was seen in the ER with the same symptoms on October 03 which resolved after a few days. He denies any cervical radicular symptoms usually. No neck pain. Principal Diagnosis Acute pericarditis of suspected viral etiology Discharge Exam General-alert and oriented x3, no fever, no chills. Obese HEENT-head atraumatic and normocephalic, pupils equal and reactive to light, extraocular muscles intact Neck-no lymphadenopathy or thyromegaly, trachea midline Chest-clear to auscultation. No rales, wheezing or rhonchi Cardiac-regular rate and rhythm, normal S1 and S2. No audible friction rub Abdomen-normal bowel sounds, nontender, no hepatosplenomegaly Extremities-no cyanosis, clubbing, or edema Neuro-cranial nerves II through XII intact, motor and sensory function within normal limits, strength symmetrical, no focal deficits Psych-normal affect, normal mood Discharge Data Allergies Allergy/AdvReac Type Severity Reaction Status Date / Time No Known Allergies Allergy Verified 10/16/23 12:02 Consultations 10/16/23 11:51 ED Decision to Admit Stat Hospital Course (1) Pericarditis: Acute. Suspected viral etiology. Minimally symptomatic at this time. Will continue colchicine at discharge. No wall motion abnormality on echocardiogram (2) Chest pain: No evidence of acute coronary syndrome. Chest pain appears to be due to acute pericarditis. Now nearly resolved. Troponin series negative (3) Diabetes: Hemoglobin A1C 10.7 in August. Usually on Toujeo 100 units BID (last took 4/3 evening). ADA diet. Sliding scale coverage if needed. (4) Obstructive sleep apnea: Stable. CPAP HS Plan Home today, October 16 Total Time Total Time Spent Total Time Spent (In Minutes): 45-minute Discharge Plan Discharge Items Patient Disposition: Home - Self-Care Reason For Visit: PERICARDITIS Discharge Diagnosis: Acute pericarditis of suspected viral etiology Activity: Resume your previous activity Non-emergency contact: Primary Care Provider Call non-emergency contact if: your symptoms worsen Follow-up/Referrals: Angie Garcia MD [Primary Care Provider] - Diet: Carb Consistent or DM2 Addtl Attending Provider Instructions: Take colchicine twice daily until chest discomfort has completely resolved then stop Pending Studies at Discharge: No Stand-Alone Forms: My [facility], Work/School Release, Smoking Cessation Medications and DC Order Prescriptions: New colchicine [Colcrys] 0.6 mg Tablet 0.6 mg PO BID Qty: 20 0RF Continued atorvastatin [Lipitor] 40 mg tablet 40 mg PO QPM Qty: 90 2RF multivitamin Tablet 1 tab PO HS (DME) pen needle, diabetic [BD Ultra-Fine Mini Pen Needle] 31 gauge x 3/16" needle See Rx Instructions .Route Qty: 100 6RF Rx Instructions: Inject once daily duloxetine 20 mg capsule,delayed release(DR/EC) 20 mg PO BID Qty: 60 2RF pregabalin [Lyrica] 75 mg capsule 150 mg PO TID 30 Days Qty: 180 0RF indomethacin 50 mg capsule 50 mg PO TID Qty: 90 0RF Rx Instructions: administer with food or milk (DME) FreeStyle Ryan 3 Sensor Device See Rx Instructions .Route Qty: 2 3RF Rx Instructions: As directed insulin glargine U-300 conc [Toujeo Max U-300 SoloStar] 300 unit/mL (3 mL) insulin pen 100 unit subcut AMHS MDD 200 Mounjaro 2.5 mg/0.5 mL pen injector 2.5 mg SUBCUT WK Rx Instructions: Fridays indomethacin 75 mg capsule, extended release 0 mg PO BID PRN (Reason: GOUT) Rx Instructions: Per patient, this is currently on hold. Original Directions: 75mg by mouth twice daily as needed Discharge Orders: Discharge Order (Routine); Ordered 10/17/23 Ordered By: Darnell Hurtado/Other Patient Handouts: Managing Type 2 Diabetes, Special Foot Care for Diabetes Admission Data Admit Date/Time: 10/16/23 12:29 Attending Provider: Darnell Harris Admit Provider: Joon Rodriguez Primary Care Provider: Angie Garcia Other Providers: Joon Rodriguez Coding Level of Care Code 41339 INP/OBS DISCH >30 MIN Diagnoses Pericarditis I31.9 Chest pain R07.9 Chest pain type: unspecified Diabetes E11.9 Obstructive sleep apnea G47.33
--- NOTE | 2023-10-18 06:42 | Electrocardiogram Report ---
Test Reason : Blood Pressure : / mmHG Vent. Rate : 085 BPM Atrial Rate : 085 BPM P-R Int : 160 ms QRS Dur : 070 ms QT Int : 348 ms P-R-T Axes : 053 019 024 degrees QTc Int : 414 ms Normal sinus rhythm Anteroseptal infarct (cited on or before 16-OCT-2023) Abnormal ECG When compared with ECG of 04-OCT-2023 14:17, Questionable change in initial forces of Anterior leads Confirmed by Brayden Ordonez ([id number]) on 10/18/2023 6:42:30 AM Referred By: Confirmed By:Brayden Ordonez
--- NOTE | 2023-10-18 06:55 | Electrocardiogram Report ---
Test Reason : Blood Pressure : / mmHG Vent. Rate : 067 BPM Atrial Rate : 067 BPM P-R Int : 182 ms QRS Dur : 098 ms QT Int : 396 ms P-R-T Axes : 022 040 045 degrees QTc Int : 418 ms Normal sinus rhythm Cannot rule out Anterior infarct (cited on or before 16-OCT-2023) Abnormal ECG When compared with ECG of 16-OCT-2023 07:28, (unconfirmed) Questionable change in initial forces of Septal leads Confirmed by Brayden Ordonez ([id number]) on 10/18/2023 6:55:48 AM Referred By: REFERRED SELF Confirmed By:Brayden Ordonez
--- NOTE | 2023-10-18 06:57 | Electrocardiogram Report ---
Test Reason : Blood Pressure : / mmHG Vent. Rate : 065 BPM Atrial Rate : 065 BPM P-R Int : 182 ms QRS Dur : 094 ms QT Int : 406 ms P-R-T Axes : 031 036 038 degrees QTc Int : 422 ms Normal sinus rhythm Cannot rule out Anterior infarct (cited on or before 16-OCT-2023) Abnormal ECG When compared with ECG of 16-OCT-2023 10:59, (unconfirmed) No significant change was found Confirmed by Brayden Ordonez ([id number]) on 10/18/2023 6:57:26 AM Referred By: REFERRED SELF Confirmed By:Brayden Ordonez
== END 2023-10-17 13:27 | disposition home or self-care (01) ==
LOC: ED 07:13 → EDINP 07:13 → SUATTDRO 12:29 → 2N 20:20